=== PATIENT | female | born 1945 | race Caucasian/White ===

== ENCOUNTER 2022-12-31 09:29 | Inpatient (IN) | payer MEDICARE, SELFPAY ==
[2022-12-31] VITALS (13 sets, daily range): BP systolic 105–195; BP diastolic 62–100; PULSE 74–106; RESP 16–24; TEMP 36.4–37.2; O2SAT 60–98; BMI 32.1
--- NOTE | 2022-12-31 09:57 | XRR_ITS ---
PROCEDURE INFORMATION: Exam: XR Chest Exam date and time: 12/31/2022 10:31 AM Age: 77 years old Clinical indication: Shortness of breath; Additional info: Dyspnea/cough TECHNIQUE: Imaging protocol: Radiologic exam of the chest. Views: 1 view. COMPARISON: No relevant prior studies available. FINDINGS: Lungs: Hazy opacity at the peripheral left lower lung zone. No dense consolidation. Right upper lung calcified granulomata. Pleural spaces: No substantial pleural effusion or pneumothorax. Heart/Mediastinum: Unremarkable. No cardiomegaly. Vasculature: Aortic arch atherosclerotic calcification. Bones/joints: Unremarkable. XR/XR chest 1V portable [id number] IMPRESSION: Hazy left lower lung zone opacity may represent atelectasis, scarring, and/or confluence of shadows. Developing pneumonia difficult to entirely exclude.
--- NOTE | 2022-12-31 09:58 | ECG_ITS ---
[facility] Test Date: 2022-12-31 Pat Name: Holly Tapia Department: Room: Gender: Female Mechanical Systems Engineer: : 1945 Requested By: Jake Gale Order Number: [id number] Tarsha MD: Juanito Richardson M.D. Measurements Intervals [place] Rate: 98 P: 79 [place]: 127 QRS: 73 QRSD: 73 T: 77 QT: 313 QTc: 401 Interpretive Statements SINUS RHYTHM WITH OCCASIONAL SUPRAVENTRICULAR PREMATURE COMPLEXES No previous ECG available for comparison Electronically Signed On 12-31-2022 12:21:41 CDT by Juanito Richardson M.D. [id number]
--- NOTE | 2022-12-31 10:05 | ED_ITS ---
HPI - SOB/Dyspnea General: Chief Complaint: Shortness of Breath/Dyspnea Stated Complaint: stroke symptoms Time Seen by Provider: 12/31/22 09:57 Source: patient Mode of arrival: ambulatory Limitations: no limitations History of Present Illness: HPI Narrative: 77-year-old female who states that she has had increasing cough along with some shortness of breath over the last 3 weeks. Patient is here with her granddaughter concerned that she is not taking good care of herself states that she has been weaker than normal has been urinating herself. Patient states that she does not want to be here and only came here because her granddaughter made her. She has no known medical history but states she has not CF primary care doctor. She denies any fevers denies any pain. Associated symptoms: Deny abdominal pain, chest pain, fever(s), nausea or vomiting Review of Systems Const: Reports: malaise; Denies: fever(s), chills, body aches or change in appetite Eyes: Denies: blurry vision or eye discomfort ENMT: Denies: throat pain or dental pain Card: Denies: chest pain Resp: Reports: dyspnea and productive cough GI: Denies: abdominal pain, nausea, vomiting or diarrhea : Denies: dysuria Musc: Denies: neck pain or back pain Skin/Breast: Denies: rash Neuro: Denies: headache(s) COUNT INCLUDES THE [facility] ED PFSH: Medical History (Updated 12/31/22 @ 12:36 by Lita Fink MD) History of diverticulitis 2016 with microperforation Surgical History (Updated 12/31/22 @ 12:34 by Lita Fink MD) History of colonoscopy 11/2015 Physical Exam Const: COMMON NORMALS: patient oriented x3 GENERAL APPEARANCE: in distress and ill appearing HENMT: COMMON NORMALS: normocephalic and atraumatic HEAD & SCALP: normocephalic and atraumatic Eye: COMMON NORMALS: Equal, round and reactive pupils present and EOMs intact bilaterally PUPIL: Yes Equal, round and reactive pupils present Neck/C-Spine: COMMON NORMALS: full ROM and supple Chest: COMMONS NORMALS: normal inspection of the chest and normal palpation of entire chest wall Resp: COMMON NORMALS: No retractions and No use of accessory muscles EFFORT & INSPECTION: Yes tachypneic and Yes respiratory distress Cardio: COMMON NORMALS: regular rhythm and No murmurs present (Cardio) RATE: tachycardic RHYTHM: regular rhythm GI: COMMON NORMALS: Normal to inspection, nondistended, normoactive bowel sounds present, Soft to palpation, non-tender and no masses PALPATION: Yes Soft to palpation Extremity: COMMON NORMALS: normal to inspection and full ROM Neuro: COMMON NORMALS: patient oriented x3, moves all extremities and no focal motor deficits Psych: COMMON NORMALS: mental status grossly normal, Normal thought process present and cooperative THOUGHT PROCESS: Normal thought process present Skin: COMMON NORMALS: no rashes or lesions noted and no wounds GENERAL SKIN EXAM: no rashes or lesions noted Course Vital Signs: Vital signs: Vital Signs Temperature 98.9 F 12/31/22 09:35 Pulse Rate 106 H 12/31/22 09:35 Respiratory Rate 24 H 12/31/22 09:35 Blood Pressure 166/81 12/31/22 11:27 Pulse Oximetry 98 12/31/22 11:27 Oxygen Delivery Me thod Nasal Cannula 12/31/22 11:27 Oxygen Flow Rate 4 12/31/22 11:27 MDM - SOB/Dyspnea Medical Decision Making Patient presents here with cough along with dyspnea she is hypoxic requiring oxygen here did start IV antibiotics patient seen by hospitalist who will admit at this time. Medical Records I reviewed the patient's medical records. Lab Data 12/31/22 10:26 12/31/22 10:26 Labs/Radiology: Radiology Impressions Chest X-Ray 12/31/22 09:57 IMPRESSION: Hazy left lower lung zone opacity may represent atelectasis, scarring, and/or confluence of shadows. Developing pneumonia difficult to entirely exclude. Laboratory Results WBC 7.39 10^3/uL (3.29-11.43) 12/31/22 10: RBC 4.48 10^6/uL (3.85-5.65) 12/31/22 10:26 Hgb 12.60 g/dL (11.27-16.99) 12/31/22 10:26 Hct 41.8 % (36-47) 12/31/22 10: MCV 93.3 fl (85-98) 12/31/22 10: MCH 28.1 pg (27-33) 12/31/22 10: MCHC 30.1 g/dL (30-55) 12/31/22 10: RDW 15.8 % (12.1-15.1) H 12/31/22 10: Plt Count 385 10^3/cmm (157-399) 12/31/22 10: MPV 9.5 fL (7.4-10.4) 12/31/22 10: Neut % (Auto) 85.2 % 12/31/22 10: Lymph % (Auto) 8.0 % 12/31/22 10:26 [place]ie % (Auto) 4.7 % 12/31/22 10:26 Eos % (Auto) 0.0 % 12/31/22 10: Baso % (Auto) 0.5 % 12/31/22 10: Neut # (Auto) 6.29 10^3/uL (1.8-7.7) 12/31/22 10: Lymph # (Auto) 0.6 10^3/uL (0.8-4.8) L 12/31/22 10:26 Davie # (Auto) 0.4 10^3/uL (0.2-0.9) 12/31/22 10:26 Eos # (Auto) 0.0 10^3/uL (0.0-0.8) 12/31/22 10:26 Baso # (Auto) 0.0 10^3/uL (0.0-0.1) 12/31/22 10:26 Nucleated RBC % (auto) 0 % 12/31/22 10: Nucleated RBCs # 0.0 /100WBC 12/31/22 10:26 Specimen Type Arterial 12/31/22 10:15 Sample Site Radial, left 12/31/22 10:15 ABG pH 7.41 (7.35-7.45) 12/31/22 10:15 ABG pCO2 56.7 mmHg (35-45) H 12/31/22 10:15 ABG pO2 76.9 mmHg (80.0-100.0) L 12/31/22 10:15 ABG HCO3 35.5 mmol/L (22-26) H 12/31/22 10:15 ABG O2 Saturation 96.4 12/31/22 10:15 ABG Base Excess 8.9 mmol/L (-2.0-2.0) H 12/31/22 10:15 Boby Test Pos 12/31/22 10:15 A-a O2 Gradient 14.2 mmHg (5-10) H 12/31/22 10:15 Hematocrit 39.2 % (37-47) 12/31/22 10:15 Hgb O2 Saturation 93.7 % (95-100) L 12/31/22 10:15 Carboxyhemoglobin 2.6 %THgb (0.4-20.1) 12/31/22 10:15 Methemoglobin 0.2 % (0.4-1.5) L 12/31/22 10:15 Total Hemoglobin 12.8 g/dL (12-16) 12/31/22 10:15 Sodium 141.0 mmol/L (131-143) 12/31/22 10:15 Potassium 3.9 mmol/L (3.5-5.0) 12/31/22 10:15 Glucose 128.0 mg/dL (70-115) H 12/31/22 10:15 Ionized Calcium 1.1 mmol/L (1.1-1.4) 12/31/22 10:15 O2 Delivery Device Nc 12/31/22 10:15 O2 Liters/Min 4.0 % 12/31/22 10:15 FiO2 36.0 % 12/31/22 10:15 [employer] Member ID Anonymous 12/31/22 10:15 Sodium 134 mmol/L (136-145) L 12/31/22 10:26 Potassium 3.9 mmol/L (3.5-5.1) 12/31/22 10:26 Chloride 94 mmol/L (98-107) L 12/31/22 10:26 Carbon Dioxide 33 mmol/L (22-29) H 12/31/22 10:26 Anion Gap 10.9 (5-19) 12/31/22 10:26 BUN 11 mg/dL (8-23) 12/31/22 10:26 Creatinine 0.8 mg/dL (0.5-0.9) 12/31/22 10:26 GFR Calculation Not Reportable 12/31/22 10:26 Glucose 123 mg/dL (65-115) H 12/31/22 10:26 Calculated Osmolality 279 mOsm/kg (285-295) L 12/31/22 10:26 Calcium 8.2 mg/dL (8.5-10.5) L 12/31/22 10:26 Total Bilirubin 0.6 mg/dL (0.15-1.2) 12/31/22 10:26 AST 39 U/L (0-32) H 12/31/22 10:26 ALT 18 U/L (0-33) 12/31/22 10:26 Alkaline Phosphatase 91 U/L (35-105) 12/31/22 10:26 Troponin T Baseline 56 ng/L (0-10) H 12/31/22 10:26 Troponin T 120 Minute 48.52 ng/L (0-10) H 12/31/22 12:22 Delta Troponin T -7.48 ABS# (0-10) L 12/31/22 12:22 NT-Pro-B Natriuret Pep 3844 pg/mL (0-450) H 12/31/22 10:26 Total Protein 7.4 g/dL (6.6-8.7) 12/31/22 10:26 Albumin 3.1 g/dL (3.5-5.2) L 12/31/22 10:26 Globulin 4.3 g/dL (1.3-4.6) 12/31/22 10:26 SARS-CoV-2 Ag (Rapid) Negative (Negative) 12/31/22 10:37 No radiology studies performed this visit EKG Data EKG 1: I personally reviewed and interpreted this EKG as follows: EKG Interpretation Date: 12/31/22 EKG interpretation time: 10: Interpretation: nsr hr [address] or t wave abnormalities qrs 73 qtc 368 Critical Care Time Critical Care Time: Critical Care Time: Yes Total Critical Care Time: 35 Attestation: The high probability of a clinically significant, sudden or life threatening deterioration of the patient's resp system(s) required my full and direct attention, intervention and personal management. The critical care time is as shown. This time is in addition to time spent performing any reported procedures but includes the following: [x] Data and vital sign review and interpretation [x] Patient assessment, examination and intervention [x] Documentation [x] Medication orders and management Discharge Plan Discharge Patient Disposition: Admitted As Inpatient Clinical Impression: Community acquired pneumonia, bilateral, Hypoxemia requiring supplemental oxygen Condition: Stable Prescriptions: No Action Tylenol Ex Str Rapid Release 500 mg Tablet 500 - 1,000 mg PO Q6H PRN (Reason: Pain) Referrals: Chioma Forbes MD [Physician] - Coding Level of Care Code ED Oxygen System Tester for Adrian Ang
--- NOTE | 2022-12-31 10:22 | PC.PHAR ---
pts granddaughter states the pt normally takes care of herself-the pt states she takes no rx medications and only takes tylenol prn-no meds pull up on ext med history
[2022-12-31 10:27] LABS: ABG PCO2 56.7 mmHg (35-45); ABG PH Result 7.41 (7.35-7.45); Alveolar-Arterial Oxygen Gradi 14.2 mmHg (5-10); Arterial Blood Gas Hematocrit 39.2 % (37-47); Base Excess ABG 8.9 mmol/L (-2.0-2.0); Blood Gas Allen Test Pos; Blood Gas Sample Site Radial, left; Blood Gas Sample Type Arterial; Carboxyhemoglobin 2.6 %THgb (0.4-20.1); HCO3 ABG 35.5 mmol/L (22-26); HGB O2 Sat 93.7 % (95-100); Ionized Calcium Level - ABG 1.1 mmol/L (1.1-1.4); Methemoglobin 0.2 % (0.4-1.5); Oxygen Device NC; Oxygen Saturation ABG 96.4; PO2 ABG 76.9 mmHg (80.0-100.0); Potassium Level - ABG 3.9 mmol/L (3.5-5.0); Total Hemoglobin 12.8 g/dL (12-16)
[2022-12-31 10:34] LABS: Basophils % 0.5 %; Hematocrit 41.8 % (36-47); Lymphocytes # 0.6 10^3/uL (0.8-4.8); Mean Corpuscular HGB Conc 30.1 g/dL (30-55); Mean Corpuscular Hemoglobin 28.1 pg (27-33); Mean Corpuscular Volume 93.3 fl (85-98); Mean Platelet Volume 9.5 fL (7.4-10.4); Monocytes # 0.4 10^3/uL (0.2-0.9); Monocytes % 4.7 %; Neutrophils # 6.29 10^3/uL (1.8-7.7); Neutrophils % 85.2 %; Nucleated Red Blood Cells % 0 %; Platelet Count 385 10^3/cmm (157-399); Red Blood Count 4.48 10^6/uL (3.85-5.65); Red Cell Distribution Width 15.8 % (12.1-15.1); White Blood Count 7.39 10^3/uL (3.29-11.43)
--- NOTE | 2022-12-31 10:49 | CT_ITS ---
WS: [id number] CT CHEST ANGIOGRAPHY WITH REFORMATS HISTORY: sob TECHNIQUE: Contiguous axial images are obtained through the chest during arterial injection of intrav enous contrast. Images are reconstructed to evaluate the pulmonary arteries. MIP imaging also reviewe d. All CT scans at [facility] use at least one of these dose optimization techniques: automat ed exposure control; mA and/or kV adjustment per patient size (includes targeted exams where dose is matched to clinical indication); or iterative reconstruction. CONTRAST: Omnipaque 350; 100 mL IV. DLP: 363.02 mGy.cm COMPARISON: None available. Good opacification of the pulmonary artery. No filling defects. Normal sized pulmonary artery. No RIG HT heart strain. Mild atherosclerosis aorta. Atherosclerotic plaque and mild intimal thickening withi n the thoracic aorta. Heart size is normal. No pericardial or pleural effusions. Marked hyperexpansion of the lungs with di ffuse bilateral tree-in-bud airspace disease and mild pulmonary congestion. There are a few scattered granulomata. Motion artifact during the entire exam. Mediastinal and hilar lymphadenopathy. Largest lymph nodes are at the hilum measuring up to 1.6 cm. Suspect these are probably reactive. Moderate increase in thoracic kyphosis with mild curvature and scoliosis. Mild hyperplasia of the adrenal glands. Motion artifact through the upper abdomen. The liver is poorl y visualized. IMPRESSION: 1. No pulmonary embolism. 2. Moderate chronic emphysema. 3. Diffuse tree-in-bud airspace disease. This is usually seen with atypical pneumonia or endobronchia l pneumonia. 4. Mild mediastinal and hilar lymphadenopathy. Probably reactive based upon the pulmonary endobronchi al pneumonia.
[2022-12-31] MEDS: hyDRALAzine 20 mg/mL INJ 1 mL 10 MG IVP (11:00)
[2022-12-31 11:03] LABS: Troponin(5th) Baseline 56 ng/L (0-10)
[2022-12-31 11:10] LABS: Alanine Aminotransferase 18 U/L (0-33); Albumin Level 3.1 g/dL (3.5-5.2); Alkaline Phosphatase 91 U/L (35-105); Anion Gap 10.9 (5-19); Aspartate Amino Transferase 39 U/L (0-32); Blood Urea Nitrogen 11 mg/dL (8-23); Calcium 8.2 mg/dL (8.5-10.5); Carbon Dioxide 33 mmol/L (22-29); Chloride 94 mmol/L (98-107); Globulin 4.3 g/dL (1.3-4.6); Glucose 123 mg/dL (65-115); NT Pro B Type Natriuretic Pept 3844 pg/mL (0-450); Osmolality Calculated 279 mOsm/kg (285-295); Potassium 3.9 mmol/L (3.5-5.1); Sodium 134 mmol/L (136-145); Total Bilirubin 0.6 mg/dL (0.15-1.2); Total Protein 7.4 g/dL (6.6-8.7)
[2022-12-31 11:19] LABS: SARS Covid-2 Antigen Negative (Negative)
[2022-12-31] MEDS: iohexol 350 mg/mL 500 mL Btl (per mL) IV (11:44)
--- NOTE | 2022-12-31 12:06 | ECG_ITS ---
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 Measurements Intervals [place] Rate: 94 P: 84 [place]: 133 QRS: 74 QRSD: 73 T: 74 QT: 332 QTc: 415 Interpretive Statements SINUS RHYTHM Compared to ECG 12/31/2022 10:09:30 No significant changes Electronically Signed On 12-31-2022 12:21:49 CDT by Juanito Richardson M.D. [id number]
[2022-12-31] MEDS: cefTRIAXone 1,000 MG in sodium chloride 0.9% (plus) 50 ML 100 MG IV (12:30)
--- NOTE | 2022-12-31 12:36 | P.HP_ITS ---
Providers/Chief Complaint Admitting Physician: Lita Fink MD Primary Care Provider: Dr Forbes (last seen ~20 years ago) Chief Complaint: shortness of breath History of Present Illness Holly Tapia is a 77 year old female who presented to the emergency room at the urging of her granddaughter. She has had increasing shortness of breath and cough for a couple of weeks. Her great grandson had had a cold. Initially she thought that she had had the same thing but her symptoms progressively worsened. She has had cough intermittently productive of greenish-yellow sputum. At times has paroxysms of coughing that can be quite significant. She has had runny nose, postnasal drainage and mild sore throat. She has had progressively worsening dyspnea on exertion to the point that within the last couple of days she can only take a couple of steps before having to rest. Over the last week or so she has developed some lower extremity edema along with cough incontinence. Both of these are new issues for her. She does not recall having had any fevers but she has not felt well and has had more difficulty attending to her activities of daily living. She has had some dizziness most notable today after attempting to exert. Her legs have also been weaker. Weakness is bilateral and comes on after taking a few steps. She has had itching in her legs as well and has had some sores from scratching. No changes in bowel function. No chest pain or abdominal pain. She herself does not usually seek medical care but at the urging of her granddaughter came into the emergency room for evaluation. On arrival oxygen saturations were documented at 60% on room air. On 4 L of oxygen by nasal cannula saturations were up to 91%. ABG after initiation of oxygen therapy was 7.41/56/76. She has no history of known lung disease. She previously smoked with maybe [id number] history but quit prior to the year 1999. Has never required oxygen before. Denied any pleuritic pain or calf pain. No reports of any hemoptysis. CTA of the chest was done and did not reveal any evidence of pulmonary embolus. It did however show diffuse tree-in-bud airspace disease and mild mediastinal and hilar lymphadenopathy. No evidence of pericardial or pleural effusions though mild pulmonary congestion was noted. Rapid COVID antigen and PCR was negative. She received Rocephin and azithromycin and is being admitted for further evaluation and treatment. Mrs. Tapia son lives with her though has some of his own challenges. She can stay with her granddaughter if needed after discharge though there are about 10 steps she will need to be able to safely navigate. We discussed possibilities at discharge of potentially needing oxygen. While her preference would be to not have to stay in the hospital she understands that she currently needs care. Reviewed that I expect her stay to be 2 to 3 days at at this time depending on clinical onset of treatment. Her goals are to be able to leave the hospital and spend quality time with her great-grandson who is 4 months old. Review of Systems General: Reports: Other (ROS as per HPI or as otherwise noted here) Const: Denies: change in weight ENMT: Reports: other (Bad teeth) Card: Denies: palpitations : Reports: urinary frequency and urinary incontinence; Denies: difficulty voiding or dysuria Musc: Reports: muscle weakness Neuro: Reports: other (No focal weakness reported) Billy/Lymph: Denies: easy bruising or easy bleeding Medications/Allergies Home Medications Medication Instructions Recorded Confirmed Last Taken Type acetaminophen 500 mg tablet 500 - 1,000 mg PO Q6H PRN Pain 12/31/22 12/31/22 Unknown History Allergies Allergy/AdvReac Type Severity Reaction Status Date / Time No Known Allergies Allergy Verified 12/31/22 10:22 PFSH Acute PFSH: Medical History (Updated 12/31/22 @ 16:01 by Lita Fink MD) 4 Para 2 History of diverticulitis 2015 with microperforation Hypertension not chronically on treatment 12/31/22 Surgical History (Updated 12/31/22 @ 12:34 by Lita Fink MD) History of colonoscopy 11/2015 Family History (Updated 12/31/22 @ 14:09 by Lita Fink MD) Father Lung cancer Mother Old age Mother in 2022 at age 95, rarely sought medical care Social History (Updated 12/31/22 @ 14:11 by Ltia Fink MD) Smoking and tobacco status: former smoker Alcohol intake: never Substance/Drug Use: never Household members: other Details: son lives with patient; grand daughter also involved in care Additional social history: Does not seek medical care regularly. Does not want to be in hospital, take pills, or see a doctor unless she has to. Lives in [place]. Vitals/I&O/Wt Last Vital Signs Temp 98.9 F 12/31/22 09:35 Pulse 106 H 12/31/22 09:35 Resp 24 H 12/31/22 09:35 BP 166/81 12/31/22 11:27 Pulse Ox 98 12/31/22 11:27 O2 Del Method Nasal Cannula 12/31/22 11:27 O2 Flow Rate 4 12/31/22 11:27 Weight last 48 hrs Weight 79.832 kg Physical Exam Narrative: Patient is awake and alert, oriented to person, place and situation, able to provide history. Normocephalic. Extraocular movements are intact. Nasopha rynx with clear rhinorrhea. Oropharynx with moist mucous membranes. Mild posterior erythema but no exudates. Poor dentition. Neck is supple. JVD to about 8 cm. Lungs with bilateral crackles throughout, scattered wheeze. Frequent productive sounding cough during evaluation. Regular rhythm, no murmurs noted. 2+ radial pulses. 1+ pedal pulses. Abdomen is soft, slightly rotund. Some excoriation in the labial/intertriginous areas. Clothing is wet. 3+ pitting edema. Scattered sores to both lower extremities in different stages of healing along with some scratches. Loss of hair noted along with significantly hyperkeratotic nails. speech is clear, face symmetric, handgrip is equal, strength equal at both feet, gait not currently assessed. Data 12/31/22 10:26 12/31/22 10:26 Other Labs: Radiology Impressions Chest X-Ray 12/31/22 09:57 IMPRESSION: Hazy left lower lung zone opacity may represent atelectasis, scarring, and/or confluence of shadows. Developing pneumonia difficult to entirely exclude. CTA Chest 12/31/22 IMPRESSION: 1. No pulmonary embolism. 2. Moderate chronic emphysema. 3. Diffuse tree-in-bud airspace disease. This is usually seen with atypical pneumonia or endobronchial pneumonia. 4. Mild mediastinal and hilar lymphadenopathy. Probably reactive based upon the pulmonary endobronchial pneumonia. Laboratory Results WBC 7.39 10^3/uL (3.29-11.43) 12/31/22 10:26 RBC 4.48 10^6/uL (3.85-5.65) 12/31/22 10:26 Hgb 12.60 g/dL (11.27-16.99) 12/31/22 10: Hct 41.8 % (36-47) 12/31/22 10: MCV 93.3 fl (85-98) 12/31/22 10: MCH 28.1 pg (27-33) 12/31/22 10: MCHC 30.1 g/dL (30-55) 12/31/22 10: RDW 15.8 % (12.1-15.1) H 12/31/22 10:26 Plt Count 385 10^3/cmm (157-399) 12/31/22 10: MPV 9.5 fL (7.4-10.4) 12/31/22 10: Neut % (Auto) 85.2 % 12/31/22 10:26 Lymph % (Auto) 8.0 % 12/31/22 10:26 Hemphill % (Auto) 4.7 % 12/31/22 10:26 Eos % (Auto) 0.0 % 12/31/22 10:26 Baso % (Auto) 0.5 % 12/31/22 10: Neut # (Auto) 6.29 10^3/uL (1.8-7.7) 12/31/22 10:26 Lymph # (Auto) 0.6 10^3/uL (0.8-4.8) L 12/31/22 10:26 Hemphill # (Auto) 0.4 10^3/uL (0.2-0.9) 12/31/22 10:26 Eos # (Auto) 0.0 10^3/uL (0.0-0.8) 12/31/22 10:26 Baso # (Auto) 0.0 10^3/uL (0.0-0.1) 12/31/22 10: Nucleated RBC % (auto) 0 % 12/31/22 10: Nucleated RBCs # 0.0 /100WBC 12/31/22 10:26 Specimen Type Arterial 12/31/22 10:15 Sample Site Radial, left 12/31/22 10:15 ABG pH 7.41 (7.35-7.45) 12/31/22 10:15 ABG pCO2 56.7 mmHg (35-45) H 12/31/22 10:15 ABG pO2 76.9 mmHg (80.0-100.0) L 12/31/22 10:15 ABG HCO3 35.5 mmol/L (22-26) H 12/31/22 10:15 ABG O2 Saturation 96.4 12/31/22 10:15 ABG Base Excess 8.9 mmol/L (-2.0-2.0) H 12/31/22 10:15 Boby Test Pos 12/31/22 10:15 A-a O2 Gradient 14.2 mmHg (5-10) H 12/31/22 10:15 Hematocrit 39.2 % (37-47) 12/31/22 10:15 Hgb O2 Saturation 93.7 % (95-100) L 12/31/22 10:15 Carboxyhemoglobin 2.6 %THgb (0.4-20.1) 12/31/22 10:15 Methemoglobin 0.2 % (0.4-1.5) L 12/31/22 10:15 Total Hemoglobin 12.8 g/dL (12-16) 12/31/22 10:15 Sodium 141.0 mmol/L (131-143) 12/31/22 10:15 Potassium 3.9 mmol/L (3.5-5.0) 12/31/22 10:15 Glucose 128.0 mg/dL (70-115) H 12/31/22 10:15 Ionized Calcium 1.1 mmol/L (1.1-1.4) 12/31/22 10:15 O2 Delivery Device Nc 12/31/22 10:15 O2 Liters/Min 4.0 % 12/31/22 10:15 FiO2 36.0 % 12/31/22 10:15 Principal Java Developer ID Anonymous 12/31/22 10:15 Sodium 134 mmol/L (136-145) L 12/31/22 10:26 Potassium 3.9 mmol/L (3.5-5.1) 12/31/22 10:26 Chloride 94 mmol/L (98-107) L 12/31/22 10:26 Carbon Dioxide 33 mmol/L (22-29) H 12/31/22 10:26 Anion Gap 10.9 (5-19) 12/31/22 10:26 BUN 11 mg/dL (8-23) 12/31/22 10:26 Creatinine 0.8 mg/dL (0.5-0.9) 12/31/22 10:26 GFR Calculation Not Reportable 12/31/22 10:26 Glucose 123 mg/dL (65-115) H 12/31/22 10:26 Calculated Osmolality 279 mOsm/kg (285-295) L 12/31/22 10:26 Calcium 8.2 mg/dL (8.5-10.5) L 12/31/22 10:26 Total Bilirubin 0.6 mg/dL (0.15-1.2) 12/31/22 10:26 AST 39 U/L (0-32) H 12/31/22 10:26 ALT 18 U/L (0-33) 12/31/22 10:26 Alkaline Phosphatase 91 U/L (35-105) 12/31/22 10:26 Troponin T Baseline 56 ng/L (0-10) H 12/31/22 10:26 NT-Pro-B Natriuret Pep 3844 pg/mL (0-450) H 12/31/22 10:26 Total Protein 7.4 g/dL (6.6-8.7) 12/31/22 10: Albumin 3.1 g/dL (3.5-5.2) L 12/31/22 10:26 Globulin 4.3 g/dL (1.3-4.6) 12/31/22 10:26 SARS-CoV-2 Ag (Rapid) Negative (Negative) 12/31/22 10:37 Micro: Microbiology 12/31/22 12:22 Blood Culture - Preliminary Blood SPECIMEN COLLECTED 12/31/22 10:26 Blood Culture - Preliminary Blood SPECIMEN COLLECTED A&P Assessment and plan (1) Hypoxemia requiring supplemental oxygen: In a patient without a history of known chronic lung disease or previous oxygen requirement. No evidence of PE on CTA imaging performed in the emergency room. COVID-negative. Pneumonia - viral, bacterial, atypical - and CHF are highest in differential based on current physical exam and other findings. Cardiac ischemia also within the differential though denies any episodes of chest pain and EKG without acute changes. Given prior history of tobacco use and episodes of bronchitis, a component of COPD likely contributing. (2) Community acquired pneumonia, bilateral: Present on admission, organism unknown; bacterial, viral etiology within the differential as is atypical infection. Not currently showing signs of sepsis. (3) Edema: Bilateral lower extremity edema and mild pulmonary congestion, no known history of CHF but has what sounds like longstanding untreated hypertension along with history of former tobacco use and prior episodes of bronchitis increasing possibility of diastolic dysfunction. Has an elevated BNP at baseline but no priors for comparison. Could be an effect of acute illness with decreased activity in the setting of mild hypoalbuminemia. (4) Hypertension: Sounds like has a longstanding history of primary hypertension. Has previously been prescribed antihypertensives which she did not tolerate (specific medication unknown). Not currently prescribed any antihypertensive agents chronically though has not sought medical care for probably 20 years by history. (5) Former tobacco use: Approximately [id number] smoking history, quit prior to 1999. Has had previous episodes of bronchitis but never required oxygen or chronic therapy Plan Elevated baseline troponin Mild hypoalbuminemia Slightly elevated AST Slightly elevated glucose in a patient without a known history of diabetes Labial and intertriginous excoriation General weakness Inpatient admission Maintain oxygen saturations greater than or equal to 92%, currently requiring 4 L by nasal cannula Blood cultures have been collected Continue Rocephin and azithromycin Breathing treatments Systemic steroids Flutter device Check procalcitonin Serial cardiac enzymes and ekgs Echocardiogram IV Lasix, monitoring urine output and renal function as well as blood pressures Oral potassium with Lasix De Leon catheter for both close monitoring of urine output and to allow healing of perineal and labial areas Check urinalysis Diflucan x one dose oral Nystatin cream as needed Montior blood pressures for need to add defined antihypertensive treatment beyond diuretic Check TSH PT eval and treat VTE prophylaxis: Lovenox GI Prophylaxis: PPI Telemetry: not currently indicated De Leon: ordered secondary to excoriation from incontinence and planned diuresis Line(s): peripheral IVs Disposition plan: Home with outpatient follow up possible with home oxygen. Would also benefit from referral to podiatry for nail care. Her goal is to get home so she can have quality time with her great grand son; she understands that care being provided and recommended is to help her reach this goal. Code Status: Allow Natural as per Mrs. Tapia clearly stated wishes should her heart stop beating or if she were to quit breathing. She wants no CPR, intubation. She said Let me go and told her granddaughter this was her wish as well. Supportive care otherwise Findings, concerns and plans as described were discussed with patient and her granddaughter and both were given an opportunity to ask questions Attestations Medical Necessity Statement*: Anticipated stay greater than two midnights in this 77-year-old who is currently requiring 4 L of oxygen by nasal cannula. No prior history of oxygen need nor chronic lung disease though has risk factors for both cardiac and pulmonary causes as described above. Currently on IV diuresis with De Leon catheter, IV antibiotics and other care as noted. At high risk of further clinical decline up to and including possibly without intervention in inpatient setting. She has no clearly described chronic medical conditions and has not sought medical care for ~ 20 years greatly limiting options beyond acute care. and High Time for a total of 75 minutes, includes reviewing past or interval history, examining/interviewing patient, placing orders, counseling patient/family/other support, discussing plan of care with staff and documenting encounter Diagnoses Hypoxemia requiring supplemental oxygen R09.02; Z99.81 Community acquired pneumonia, bilateral J18.9 Edema R60.9 Hypertension I10 Former tobacco use Z87.891
[2022-12-31 12:52] LABS: Troponin 5 2HR 48.52 ng/L (0-10)
[2022-12-31 12:54] LABS: Troponin 5 2HR Delta -7.48 ABS# (0-10)
[2022-12-31] MEDS: azithromycin 500 MG in sodium chloride 0.9% 250 ML 250 MG IV (13:57)
--- NOTE | 2022-12-31 14:30 | USCV_ITS ---
Holly Tapia Age: 77 Gender: F : 1945 Exam Date: 12/31/2022 18:20 Ordering Phys: Lita Fink MD Technologist: ROSHAN Exam Location: [facility] [place] Indication: cough, SOB, pulmonary edema, No hx cardiac intervention per patient. BP: 134 / 75 HR: 88 Rhythm: Sinus Technical Quality: Fair MEASUREMENTS (Male / Female) Normal Values 2D ECHO LV Diastolic Diameter PLAX 3.8 cm 4.2 - 5.9 / 3.9 - 5.3 cm LV Systolic Diameter PLAX 2.8 cm IVS Diastolic Thickness 1.4 cm 0.6 - 1.0 / 0.6 - 0.9 cm IVS Systolic Thickness 1.5 cm LVPW Diastolic Thickness 1.1 cm 0.6 - 1.0 / 0.6 - 0.9 cm LVPW Systolic Thickness 1.4 cm LVOT Diameter 1.9 cm LV Ejection Fraction 2D Teich 52.8 % LV Ejection Fraction MOD 2C 73.7 % LV Ejection Fraction 2C AL 73.3 % LA Diameter 3.2 cm LA Width 3.0 cm LA Height 3.8 cm RA Width 3.6 cm RA Height 3.3 cm Aorta at Sinotubular Diameter 2.5 cm IVC Diameter 1.9 cm M-MODE Aortic Annulus Diameter 2.9 cm LA Ao Ratio MM 1.2 MV E Point Septal Separation 0.5 cm DOPPLER AV Peak Velocity 116.0 cm/s LVOT Peak Velocity 100.0 cm/s AV Area Cont Eq vti 2.5 cm squared AV Area Cont Eq pk 2.4 cm squared MV Peak Velocity 124.0 cm/s MV Area PHT 3.3 cm squared Mitral E to A Ratio 0.9 MV E' Velocity 58.0 cm/s Mitral E to MV E' Ratio 10.4 Mitral E to LV E' Lateral Ratio 9.8 Mitral E to LV E' Septal Ratio 11.2 TR Peak Velocity 259.0 cm/s TR Peak Gradient 26.8 mmHg TV Peak E Velocity 50.0 cm/s Right Atrial Pressure 5.0 mmHg Pulmonary Artery Systolic Pressu 31.8 mmHg FINDINGS Left Ventricle Left ventricle is normal in size. LV systolic function is normal with EF of 60 to 65%. No regional wall motion abnormalities are seen. Grade 1 diastolic dysfunction Right Ventricle Normal in size and function Right Atrium Normal in size Left Atrium Normal in size Mitral Valve Moderate mitral annular calcification is seen. Mild mitral regurgitation Aortic Valve Aortic valve is thickened and calcified. No significant stenosis or regurgitation Tricuspid Valve Trace tricuspid regurgitation. Insufficient TR jet to calculate RVSP Pulmonic Valve Not well visualized Pericardium Normal Aorta Normal in size IVC Appears to be normal CONCLUSIONS LV systolic function is normal with EF of 60 to 65%. Grade 1 diastolic dysfunction. Mild mitral regurgitation. Trace tricuspid regurgitation No comparison studies are available. Juanito Richardson MD (Electronically Signed) Final Date: 31 December 2022 19:48 S
[2022-12-31 15:05] LABS: Add Urine Microscopic? NO; Charge for UA Resulting for Rev
[2022-12-31] MEDS: ipratropium-albuterol 3 mL Neb INHALATION ×2 (15:14→19:35)
[2022-12-31 15:30] LABS: Adenovirus Not Detected (NOT DETECT); Chlamydia Pneumoniae Not Detected (NOT DETECT); Coronavirus 229E,HKU1,NL63,OC4 Not Detected (NOT DETECT); Human Metapneumovirus Not Detected (NOT DETECT); Human Rhinovirus/Enterovirus Not Detected (NOT DETECT); Influenza A Not Detected (NOT DETECT); Influenza A H1 Not Detected (NOT DETECT); Influenza A H1-2009 Not Detected (NOT DETECT); Influenza A H3 Not Detected (NOT DETECT); Influenza B Not Detected (NOT DETECT); Mycoplasma Pneumoniae Not Detected (NOT DETECT); Parainfluenza Virus Type 1 Not Detected (NOT DETECT); Parainfluenza Virus Type 2 Not Detected (NOT DETECT); Parainfluenza Virus Type 3 Not Detected (NOT DETECT); Parainfluenza Virus Type 4 Not Detected (NOT DETECT); Respiratory Syncytial Virus A Not Detected (NOT DETECT); Respiratory Syncytial Virus B Not Detected (NOT DETECT); SARS-COV-2 Not Detected (NOT DETECT)
[2022-12-31 15:43] LABS: Bilirubin Urine 1+ (Negative); Blood Urine Neg (Negative); Glucose Urine UA Norm (Normal); Ketones Urine Negative (Negative); Leukocyte Esterase Urine Negative (Negative); Nitrate Urine Negative (Negative); Protein Urine Neg (Negative); Specific Gravity, Urine 1.025 (1.005-1.030); Urine Appearance Clear (CLEAR); Urine Color Yellow (Yellow); Urobilinogen Urine 4 mg/dL (Negative); pH Urine 5 (5-7)
[2022-12-31 16:26] LABS: Procalcitonin 0.09 ng/mL (0-0.5)
[2022-12-31] MEDS: nystatin cream 30 gm 1 APPLIC TOPICAL (17:13)
[2022-12-31] MEDS: FUROsemide 10 mg/mL SDV 2mL 20 MG IVP (17:13)
[2022-12-31] MEDS: neomycin-poly-bacitracin oint 28 gm 1 APPLIC TOPICAL (17:15)
[2022-12-31] MEDS: fluconazole 100 mg Tablet 150 MG PO (17:15)
[2022-12-31] MEDS: enoxaparin 40 mg/0.4 mL Syringe SUBCUT (17:22)
[2022-12-31 17:41] LABS: Troponin 5 6HR 35.39 ng/L (0-10)
[2023-01-01] VITALS (10 sets, daily range): BP systolic 123–182; BP diastolic 69–82; PULSE 76–100; RESP 15–20; TEMP 36.2–37; O2SAT 90–94
[2023-01-01 06:05] LABS: Basophils % 0.3 %; Eosinophils # 0.1 10^3/uL (0.0-0.8); Eosinophils % 1.4 %; Hematocrit 41.5 % (36-47); Mean Corpuscular HGB Conc 29.6 g/dL (30-55); Mean Corpuscular Volume 94.3 fl (85-98); Mean Platelet Volume 9.5 fL (7.4-10.4); Monocytes # 0.5 10^3/uL (0.2-0.9); Monocytes % 7.4 %; Neutrophils # 5.26 10^3/uL (1.8-7.7); Neutrophils % 75.3 %; Nucleated Red Blood Cells % 0 %; Platelet Count 342 10^3/cmm (157-399); Red Cell Distribution Width 15.9 % (12.1-15.1); White Blood Count 6.99 10^3/uL (3.29-11.43)
[2023-01-01 06:42] LABS: Blood Urea Nitrogen 10 mg/dL (8-23); Calcium 7.8 mg/dL (8.5-10.5); Carbon Dioxide 31 mmol/L (22-29); Chloride 99 mmol/L (98-107); Glucose 96 mg/dL (65-115); Magnesium 2.2 mg/dL (1.7-2.3); Osmolality Calculated 287 mOsm/kg (285-295); Phosphorus 4.1 mg/dL (2.5-4.5); Sodium 139 mmol/L (136-145); Thyroid Stimulating Hormone 0.92 uIU/mL (0.27-4.20)
[2023-01-01] MEDS: predniSONE 20 mg Tablet 40 MG PO (08:21)
[2023-01-01] MEDS: pantoprazole DR 40 mg Tablet PO (08:22)
[2023-01-01] MEDS: potassium chloride ER 20 mEq Tablet PO (08:22)
[2023-01-01] MEDS: neomycin-poly-bacitracin oint 28 gm 1 APPLIC TOPICAL ×2 (08:27→18:29)
[2023-01-01] MEDS: nystatin cream 30 gm 1 APPLIC TOPICAL (08:30)
[2023-01-01] MEDS: ipratropium-albuterol 3 mL Neb INHALATION ×3 (09:22→19:41)
--- NOTE | 2023-01-01 09:24 | PC.CHAP ---
Pastoral Care Encounter/Spiritual Assessment Type of Contact [] Declined smelter charger visit [] Patient/Family/Request visit [] Outpatient visit [] Follow-up visit [] Physician referral [] Code/Alert [x] Routine visit [] Staff referral [] Actively dying [] Patient sleeping [x] Family support [] [] Out of room [] Palliative care [] [] Receiving care in room [] Pre-surgical visit [] Trauma [] Long length of stay [] ICU visit [] Other: Relational/Emotional Strength [x] Patient feels connected with others/family/visitors/staff [] Distress [] Loneliness/isolation [] Abandonment Spirituality of Patient [x] Person of Che [] Attends Confucianism of their Che [x] Believes in Prayer [] Reads Bible or Sikhism materials [] There are Spiritual issues to be addressed Cost Consultant Interventions [x] Prayer [x] Active listening [] Non-anxious presence [x] Spiritual/emotional support [] Crisis/trauma care [] Spiritual counseling [] Bereavement support [] Provided bereavement packet [] Provided Bible/devotional materials [] Provided toy/stuffed animal, coloring book to patient or family member [] Provided Communion [] Anointing/[place] [] Salvation [x] Completed spiritual assessment [] Other: Impact on Illness or Injury [] Angry [] Fearful [] Anxious [] Often cries [] Exhaustion [] Unable to work [] Unable to attend temple [] Unable to walk/stand [] Unable to read [] Unable to drive [] Unable to eat/drink [] Unable to sleep [] Unable to be with family [] Patient intubated [] Other: Summary Time spent with patient 5 min
[2023-01-01] MEDS: azithromycin 500 MG in sodium chloride 0.9% 250 ML 250 MG IV (11:51)
[2023-01-01] MEDS: cefTRIAXone 1,000 MG in sodium chloride 0.9% (plus) 50 ML 100 MG IV (12:59)
[2023-01-01] MEDS: FUROsemide 10 mg/mL SDV 2mL 20 MG IVP (14:10)
[2023-01-01] MEDS: enoxaparin 40 mg/0.4 mL Syringe SUBCUT (14:10)
--- NOTE | 2023-01-01 16:24 | P.PN_ITS ---
Subjective Subjective: She is quite bothered by cough. Having some chest congestion, not bringing up much phlegm. Discussed with her antitussive. Decongestant. Discussed flutter valve. No nausea vomiting or diarrhea. She is still having some lower extremity swelling. Vitals/I&O/Wt Last Vital Signs Temp 97.5 F L 01/01/23 16:00 Pulse 82 01/01/23 16:00 Resp 19 H 01/01/23 16:00 BP 145/76 01/01/23 16:00 Pulse Ox 91 01/01/23 16:00 O2 Del Method Room Air 01/01/23 16:00 O2 Flow Rate 3 01/01/23 15:33 01/01/23 01/01/23 01/01/23 06:59 14:59 22:59 Intake Total 900 / 900 Output Total 100 / 1600 Balance -100 / -1060 900 / 900 Weight last 48 hrs Weight 82.645 kg Weight 79.832 kg Physical Exam Narrative: Accompanied by a gentleman visitor at bedside. Const: COMMON NORMALS: patient oriented x3 and alert GENERAL APPEARANCE: cooperative ORIENTATION/CONSCIOUSNESS: Yes awake HENMT: COMMON NORMALS: oropharynx normal Neck/C-Spine: COMMON NORMALS: no JVD Resp: COMMON NORMALS: normal respiratory effort OTHER: Coarse breath sounds. Mildly diminished. Cardio: COMMON NORMALS: no JVD, regular rhythm, S1 normal heart sound present, S2 normal heart sound present and No murmurs present (Cardio) RHYTHM: regular rhythm HEART SOUNDS: S1 normal heart sound present and S2 normal heart sound present GI: COMMON NORMALS: Normal to inspection, nondistended, normoactive bowel sounds present, Soft to palpation and non-tender PALPATION: Yes Soft to palpation Extremity: COMMON NORMALS: no joint enlargement GENERAL: Yes edema (2+ BL LE) Neuro: COMMON NORMALS: patient oriented x3 and moves all extremities SENSORIUM/ORIENTATION: Yes alert Skin: OTHER: Small maculopapular lesions scattered on LE Urinary Catheter Management: De Leon: Cath Placed During This Visit: yes Reason for Continuing Indwelling Catheter: Accurate Measurement of Urinary Output in Critically Ill Patients Urinary Catheter Date of Insertion: 12/31/22 Urinary Catheter Time of Insertion: 14:57 Data 01/01/23 05:54 01/01/23 05:54 Micro: Microbiology 12/31/22 12:22 Blood Culture - Preliminary Blood NEGATIVE TO DATE 12/31/22 10:26 Blood Culture - Preliminary Blood NEGATIVE TO DATE A&P Assessment and plan (1) Hypoxemia requiring supplemental oxygen: Gradually improving, weaning down on oxygen support. She is still bothered by significant cough. Continue treatment of community-acquired pneumonia, suspected component of COPD with noted emphysema, tach, diminished air entry. Continue prednisone 20 mg daily. Add expectorant, antitussive. Continue breathing treatments. Oxygen support as needed. Will benefit from home O2 evaluation prior to discharge. Discussed with case management. Additional component of fluid overload, diastolic congestive heart failure, revi ewed echocardiogram results, noted EF within normal range, grade 1 diastolic dysfunction. Mild MVR. Trace TVR. From long-term optimization of hypertension control to prevent progressive cardiac dysfunction. Repeat IV Lasix. Change diet to cardiac. Reviewed CBC, reviewed electrolytes, renal function. Magnesium. TSH. At risk of electrolyte imbalance, repeat chemistry. (2) Community acquired pneumonia, bilateral: Continue ceftriaxone, azithromycin. Treat component of COPD exacerbation. Diastolic CHF exacerbation. (3) Edema: As above. (4) Hypertension: Repeat Lasix. Monitor blood pressures. Change diet to cardiac. Sounds like has a longstanding history of primary hypertension. Has previously been prescribed antihypertensives which she did not tolerate (specific medication unknown). Not currently prescribed any antihypertensive agents chronically though has not sought medical care for probably 20 years by history. (5) Former tobacco use: Approximately [id number] smoking history, quit prior to 1999. Has had previous episodes of bronchitis but never required oxygen or chronic therapy Plan LE: Maculopapular rash. Appears like possibly insect bites. Monitor. De Leon: secondary to excoriation from incontinence and planned diuresis Disposition plan: Home with outpatient follow up possibly with home oxygen. Her goal is to get home so she can have quality time with her great grand son Would also benefit from referral to podiatry for nail care. Code Status: Allow Natural as per Mrs. Tapia clearly stated wishes should her heart stop beating or if she were to quit breathing. She wants no CPR, intubation. Attestations Medical Necessity Statement*: Admission for assessment of remainder of community-acquired pneumonia, COPD exacerbation, CHF exacerbation. Diagnoses Hypoxemia requiring supplemental oxygen R09.02; Z99.81 Community acquired pneumonia, bilateral J18.9 Edema R60.9 Hypertension I10 Former tobacco use Z87.891
[2023-01-02] VITALS (11 sets, daily range): BP systolic 134–165; BP diastolic 75–83; PULSE 72–95; RESP 16–22; TEMP 36.4–37.2; O2SAT 86–98
[2023-01-02 06:11] LABS: Basophils % 0.3 %; Eosinophils % 0.3 %; Hematocrit 40.3 % (36-47); Lymphocytes # 0.9 10^3/uL (0.8-4.8); Lymphocytes % 12.5 %; Mean Corpuscular HGB Conc 29.3 g/dL (30-55); Mean Corpuscular Hemoglobin 27.8 pg (27-33); Mean Platelet Volume 9.6 fL (7.4-10.4); Monocytes # 0.5 10^3/uL (0.2-0.9); Monocytes % 7.5 %; Neutrophils # 5.41 10^3/uL (1.8-7.7); Nucleated Red Blood Cells % 0 %; Platelet Count 299 10^3/cmm (157-399); Red Blood Count 4.24 10^6/uL (3.85-5.65); Red Cell Distribution Width 15.7 % (12.1-15.1); White Blood Count 7.11 10^3/uL (3.29-11.43)
[2023-01-02 06:33] LABS: Anion Gap 10.2 (5-19); Blood Urea Nitrogen 14 mg/dL (8-23); Calcium 8.1 mg/dL (8.5-10.5); Carbon Dioxide 36 mmol/L (22-29); Chloride 96 mmol/L (98-107); Glucose 94 mg/dL (65-115); Osmolality Calculated 286 mOsm/kg (285-295); Potassium 4.2 mmol/L (3.5-5.1); Sodium 138 mmol/L (136-145)
[2023-01-02] MEDS: ipratropium-albuterol 3 mL Neb INHALATION ×4 (08:08→20:01)
[2023-01-02] MEDS: pantoprazole DR 40 mg Tablet PO (08:38)
[2023-01-02] MEDS: nystatin cream 30 gm 1 APPLIC TOPICAL ×2 (08:38→17:37)
[2023-01-02] MEDS: potassium chloride ER 20 mEq Tablet PO (08:38)
[2023-01-02] MEDS: predniSONE 20 mg Tablet 40 MG PO (08:38)
[2023-01-02] MEDS: neomycin-poly-bacitracin oint 28 gm 1 APPLIC TOPICAL ×2 (08:39→17:37)
[2023-01-02] MEDS: cefTRIAXone 1,000 MG in sodium chloride 0.9% (plus) 50 ML 100 MG IV (10:42)
[2023-01-02] MEDS: azithromycin 500 MG in sodium chloride 0.9% 250 ML 250 MG IV (14:15)
[2023-01-02] MEDS: enoxaparin 40 mg/0.4 mL Syringe SUBCUT (14:22)
[2023-01-02] MEDS: FUROsemide 10 mg/mL SDV 2mL 20 MG IVP (14:24)
--- NOTE | 2023-01-02 17:05 | PM.PN ---
Subjective Subjective: She feels overall she is improving. She is still needing oxygen, not normally on oxygen. Still having cough, wheezing. Vitals/I&O/Wt Last Vital Signs Temp 98 F 01/02/23 16:33 Pulse 85 01/02/23 16:33 Resp 18 01/02/23 16:33 BP 134/75 01/02/23 16:33 Pulse Ox 94 01/02/23 16:33 O2 Del Method Nasal Cannula 01/02/23 16:33 O2 Flow Rate 3 01/02/23 16:05 01/02/23 01/02/23 01/02/23 06:59 14:59 22:59 Intake Total 410 / 410 250 / 660 Output Total 500 / 1300 700 / 700 Balance -500 / 320 410 / 410 -450 / -40 Weight last 48 hrs Weight 82.554 kg Weight 82.645 kg Physical Exam Narrative: Accompanied by a gentleman visitor at bedside. Const: COMMON NORMALS: patient oriented x3 and alert GENERAL APPEARANCE: cooperative ORIENTATION/CONSCIOUSNESS: Yes awake HENMT: COMMON NORMALS: oropharynx normal Neck/C-Spine: COMMON NORMALS: no JVD Resp: COMMON NORMALS: normal respiratory effort OTHER: Wheezing. Cardio: COMMON NORMALS: no JVD, regular rhythm, S1 normal heart sound present, S2 normal heart sound present and No murmurs present (Cardio) RHYTHM: regular rhythm HEART SOUNDS: S1 normal heart sound present and S2 normal heart sound present GI: COMMON NORMALS: Normal to inspection, nondistended, normoactive bowel sounds present, Soft to palpation and non-tender PALPATION: Yes Soft to palpation Extremity: COMMON NORMALS: no joint enlargement GENERAL: Yes edema (2+ BL LE) Neuro: COMMON NORMALS: patient oriented x3 and moves all extremities SENSORIUM/ORIENTATION: Yes alert Skin: OTHER: Small maculopapular lesions scattered on LE Urinary Catheter Management: De Leon: Cath Placed During This Visit: yes Reason for Continuing Indwelling Catheter: Accurate Measurement of Urinary Output in Critically Ill Patients Urinary Catheter Date of Insertion: 12/31/22 Urinary Catheter Time of Insertion: 14:57 Data 01/02/23 05:52 01/02/23 05:52 Micro: Microbiology 12/31/22 12:22 Blood Culture - Preliminary Blood NEGATIVE TO DATE 12/31/22 10:26 Blood Culture - Preliminary Blood NEGATIVE TO DATE A&P Assessment and plan (1) Hypoxemia requiring supplemental oxygen: She is gradually improving. Still wheezing. Coughing. Still hypoxic, requiring 3 L oxygen, although has been gradually improving. Not normally on oxygen. Encouraged ambulation. We will discontinue De Leon. Continue ceftriaxone, azithromycin, prednisone. Breathing treatments. Expectorants. Antitussive. Discussed with case management if continues to gradually improve, consideration of returning home tomorrow, home oxygen evaluation requested. Additional Lasix today for CHF. Additional component of fluid overload, diastolic congestive heart failure, reviewed echocardiogram results, noted EF within normal range, grade 1 diastolic dysfunction. Mild MVR. Trace TVR. From long-term optimization of hypertension control to prevent progressive cardiac dysfunction. Treat pneumonia, component of COPD exacerbation. Diastolic CHF exacerbation. Reviewed CBC, chemistry. Repeat both. Reassess white count. At risk of electrolyte imbalance. (2) Community acquired pneumonia, bilateral: (3) Edema: As above. (4) Hypertension: BP improved. Repeat Lasix. Monitor blood pressures. Cardiac diet. Sounds like has a longstanding history of primary hypertension. Has previously been prescribed antihypertensives which she did not tolerate (specific medication unknown). Not currently prescribed any antihypertensive agents chronically though has not sought medical care for probably 20 years by history. (5) Former tobacco use: Approximately 75-[id number]-sxuk smoking history, quit prior to 1999. Has had previous episodes of bronchitis but never required oxygen or chronic therapy Plan LE: Maculopapular rash with some shallow ulcerations. No blistering. Reports these are from excoriations from scratching her legs. De Leon: secondary to excoriation from incontinence and planned diuresis Disposition plan: Home with outpatient follow up possibly with home oxygen. Her goal is to get home so she can have quality time with her great grand son Would also benefit from referral to podiatry for nail care. Code Status: Allow Natural as per Mrs. Tapia clearly stated wishes should her heart stop beating or if she were to quit breathing. She wants no CPR, intubation. Attestations Medical Necessity Statement*: Admission for assessment of remainder of community-acquired pneumonia, COPD exacerbation, CHF exacerbation. Diagnoses Hypoxemia requiring supplemental oxygen R09.02; Z99.81 Community acquired pneumonia, bilateral J18.9 Edema R60.9 Hypertension I10 Former tobacco use Z87.891
--- NOTE | 2023-01-02 19:22 | PC.NURSE ---
pt irritable, refused to answer some questions, stated I'm not answering that , or just glares at nurse. able to follow some instruction to allow assessments
[2023-01-03] VITALS (7 sets, daily range): BP systolic 130–184; BP diastolic 60–84; PULSE 82–90; RESP 16–18; TEMP 36.7–37.2; O2SAT 94–97
--- NOTE | 2023-01-03 04:32 | PC.NURSE ---
pt used bathroom and there was not a hat in there to collect it
[2023-01-03 05:15] LABS: Basophils % 0.2 %; Eosinophils % 0.5 %; Hematocrit 38.9 % (36-47); Lymphocytes # 0.9 10^3/uL (0.8-4.8); Lymphocytes % 13.9 %; Mean Corpuscular HGB Conc 29.3 g/dL (30-55); Mean Corpuscular Hemoglobin 27.9 pg (27-33); Mean Corpuscular Volume 95.3 fl (85-98); Monocytes # 0.6 10^3/uL (0.2-0.9); Monocytes % 8.9 %; Neutrophils # 5.04 10^3/uL (1.8-7.7); Nucleated Red Blood Cells % 0 %; Platelet Count 290 10^3/cmm (157-399); Red Blood Count 4.08 10^6/uL (3.85-5.65); Red Cell Distribution Width 15.7 % (12.1-15.1); White Blood Count 6.62 10^3/uL (3.29-11.43)
[2023-01-03 05:37] LABS: Anion Gap 7.3 (5-19); Blood Urea Nitrogen 16 mg/dL (8-23); Calcium 8.3 mg/dL (8.5-10.5); Carbon Dioxide 39 mmol/L (22-29); Chloride 95 mmol/L (98-107); Glucose 88 mg/dL (65-115); Osmolality Calculated 285 mOsm/kg (285-295); Potassium 4.3 mmol/L (3.5-5.1); Sodium 137 mmol/L (136-145)
[2023-01-03] MEDS: ipratropium-albuterol 3 mL Neb INHALATION ×2 (08:31→11:20)
[2023-01-03] MEDS: neomycin-poly-bacitracin oint 28 gm 1 APPLIC TOPICAL (09:55)
[2023-01-03] MEDS: potassium chloride ER 20 mEq Tablet PO (09:56)
[2023-01-03] MEDS: nystatin cream 30 gm 1 APPLIC TOPICAL (09:56)
[2023-01-03] MEDS: pantoprazole DR 40 mg Tablet PO (09:56)
[2023-01-03] MEDS: predniSONE 20 mg Tablet 40 MG PO (09:56)
--- NOTE | 2023-01-03 10:54 | PM.DCS ---
Discharge Providers Date of Admission: 12/31/22 12:27 Date of Discharge: January 03, 2023 Attending Provider at Admission: Lita Fink MD Attending Provider at Discharge: Blake Ahuja Diagnoses at Discharge Discharge Diagnosis (1) Hypoxemia requiring supplemental oxygen: Status: Acute (2) Community acquired pneumonia, bilateral: Status: Acute (3) Edema: Status: Acute (4) Hypertension: Status: Acute Permanent problem details: not chronically on treatment 12/31/22 (5) Former tobacco use: Status: Acute Permanent problem details: quit ~1999 Reason for Visit Reason for Visit: shortness of breath Hospital Course Hospital Course Pleasant 77-year-old lady with history of hypertension, presenting due to increasing shortness of breath, cough, started after great grandson had a cold. Initially with similar symptoms, but symptoms progressed, worsening with productive cough with green-yellow sputum. Bothersome cough. Progressive dyspnea on exertion. In the hospital with wheezing, reduced air entry, new oxygen requirement with need for 4 L of oxygen by nasal cannula, previously not on oxygen. CT angiogram chest without PE, with diffuse tree-in-bud airspace disease and mild mediastinal and hilar lymphadenopathy. COVID-19 PCR panel was negative. She was started on ceftriaxone and azithromycin. Additionally with bronchospastic component with wheezing, did receive prednisone as well. On presentation also with lower extremity edema bilaterally, with possible component of congestive heart failure, was treated with diuretic, echocardiogram obtained with normal ejection fraction, with noted grade 1 diastolic dysfunction. Blood pressures in the hospital with some fluctuation, intermittently rising up to 170s-180s. On the legs also noted with scattered small lesions, shallow ulcerations, x-ray shows, she states from scratching her legs, some with small maculopapular appearance. With treatment her respiratory symptoms have been improving from bacterial pneumonia unlikely superimposed on initially viral pneumonia. Cough still present but with improvement. Blood culture remains negative. Oxygenation improving but still requiring oxygen support. Subjectively she has been improving. She feels ready to return home. Please follow-up for continued improvement. She will complete course of cefdinir and azithromycin, as well as a short course of prednisone at discharge due to bronchospastic component. Albuterol is provided for ambulation as needed. Advised to continue monitoring blood pressure to prevent further progression of diastolic dysfunction, congestive heart failure. Provided with Lasix as needed. Started on low-dose lisinopril for now. Please reassess blood pressure, continue to optimize. Advised to avoid scratching her legs, apply moisturizer as needed. Please follow-up the tiny scattered lesions on her legs. Physical Exam Narrative: She appears comfortable. In good spirits. States she is feeling better. Denies any complaints. Feels ready to return home. Const: COMMON NORMALS: patient oriented x3 and alert GENERAL APPEARANCE: cooperative ORIENTATION/CONSCIOUSNESS: Yes awake HENMT: COMMON NORMALS: oropharynx normal Neck/C-Spine: COMMON NORMALS: no JVD Resp: COMMON NORMALS: normal respiratory effort OTHER: Minimal wheeze left upper lung clear Cardio: COMMON NORMALS: no JVD, regular rhythm, S1 normal heart sound present, S2 normal heart sound present and No murmurs present (Cardio) RHYTHM: regular rhythm HEART SOUNDS: S1 normal heart sound present and S2 normal heart sound present GI: COMMON NORMALS: Normal to inspection, nondistended, normoactive bowel sounds present, Soft to palpation and non-tender PALPATION: Yes Soft to palpation Extremity: COMMON NORMALS: no joint enlargement GENERAL: Yes edema (2+ BL LE) Neuro: COMMON NORMALS: patient oriented x3 and moves all extremities SENSORIUM/ORIENTATION: Yes alert Skin: OTHER: Small maculopapular lesions, tiny shallow ulcerations/excoriations scattered on LE Urinary Catheter Management: De Leon: Cath Placed During This Visit: yes, but has since been removed by the nurse Reason for Continuing Indwelling Catheter: Decision to DC Catheter Urinary Catheter Date of Insertion: 12/31/22 Urinary Catheter Time of Insertion: 14:57 Date Urinary Catheter Removed: 01/02/23 Time Urinary Catheter Discontinued: 17:40 Discharge Data Studies Completed and Pending Completed Studies During Hospitalization Category Date Time Status CTA chest [CT angio chest PE protcl [id number]] Stat Cat Scan 12/31/22 10:49 Completed XR chest 1V portable [id number] Stat Exams 12/31/22 09:57 Completed CV. echo complete* [id number] Routine Ultrasound 12/31/22 14:30 Completed Pending at discharge Category Date Time Status Basic Metabolic Panel AM LABS Lab 01/04/23 04:00 Ordered Blood Culture Stat Lab 12/31/22 12:22 Results Complete Blood Count w/Auto AM LABS Lab 01/04/23 04:00 Ordered Radiology Impressions Chest X-Ray 12/31/22 09:57 IMPRESSION: Hazy left lower lung zone opacity may represent atelectasis, scarring, and/or confluence of shadows. Developing pneumonia difficult to entirely exclude. Laboratory Results WBC 6.62 10^3/uL (3.29-11.43) 01/03/23 04:35 RBC 4.08 10^6/uL (3.85-5.65) 01/03/23 04:35 Hgb 11.40 g/dL (11.27-16.99) 01/03/23 04:35 Hct 38.9 % (36-47) 01/03/23 04:35 MCV 95.3 fl (85-98) 01/03/23 04:35 MCH 27.9 pg (27-33) 01/03/23 04:35 MCHC 29.3 g/dL (30-55) L 01/03/23 04:35 RDW 15.7 % (12.1-15.1) H 01/03/23 04:35 Plt Count 290 10^3/cmm (157-399) 01/03/23 04:35 MPV 10.0 fL (7.4-10.4) 01/03/23 04:35 Neut % (Auto) 76.0 % 01/03/23 04:35 Lymph % (Auto) 13.9 % 01/03/23 04:35 [place] % (Auto) 8.9 % 01/03/23 04:35 Eos % (Auto) 0.5 % 01/03/23 04:35 Baso % (Auto) 0.2 % 01/03/23 04:35 Neut # (Auto) 5.04 10^3/uL (1.8-7.7) 01/03/23 04:35 Lymph # (Auto) 0.9 10^3/uL (0.8-4.8) 01/03/23 04:35 [place] # (Auto) 0.6 10^3/uL (0.2-0.9) 01/03/23 04:35 Eos # (Auto) 0.0 10^3/uL (0.0-0.8) 01/03/23 04:35 Baso # (Auto) 0.0 10^3/uL (0.0-0.1) 01/03/23 04:35 Nucleated RBC % (auto) 0 % 01/03/23 04:35 Nucleated RBCs # 0.0 /100WBC 01/03/23 04:35 Specimen Type Arterial 12/31/22 10:15 Sample Site Radial, left 12/31/22 10:15 ABG pH 7.41 (7.35-7.45) 12/31/22 10:15 ABG pCO2 56.7 mmHg (35-45) H 12/31/22 10:15 ABG pO2 76.9 mmHg (80.0-100.0) L 12/31/22 10:15 ABG HCO3 35.5 mmol/L (22-26) H 12/31/22 10:15 ABG O2 Saturation 96.4 12/31/22 10:15 ABG Base Excess 8.9 mmol/L (-2.0-2.0) H 12/31/22 10:15 Boby Test Pos 12/31/22 10:15 A-a O2 Gradient 14.2 mmHg (5-10) H 12/31/22 10:15 Hematocrit 39.2 % (37-47) 12/31/22 10:15 Hgb O2 Saturation 93.7 % (95-100) L 12/31/22 10:15 Carboxyhemoglobin 2.6 %THgb (0.4-20.1) 12/31/22 10:15 Methemoglobin 0.2 % (0.4-1.5) L 12/31/22 10:15 Total Hemoglobin 12.8 g/dL (12-16) 12/31/22 10:15 Sodium 141.0 mmol/L (131-143) 12/31/22 10:15 Potassium 3.9 mmol/L (3.5-5.0) 12/31/22 10:15 Glucose 128.0 mg/dL (70-115) H 12/31/22 10:15 Ionized Calcium 1.1 mmol/L (1.1-1.4) 12/31/22 10:15 O2 Delivery Device Nc 12/31/22 10:15 O2 Liters/Min 4.0 % 12/31/22 10:15 FiO2 36.0 % 12/31/22 10:15 Scratch Brusher ID kinch 12/31/22 10:15 Sodium 137 mmol/L (136-145) 01/03/23 04:35 Potassium 4.3 mmol/L (3.5-5.1) 01/03/23 04:35 Chloride 95 mmol/L (98-107) L 01/03/23 04:35 Carbon Dioxide 39 mmol/L (22-29) H 01/03/23 04:35 Anion Gap 7.3 (5-19) 01/03/23 04:35 BUN 16 mg/dL (8-23) 01/03/23 04:35 Creatinine 0.7 mg/dL (0.5-0.9) 01/03/23 04:35 GFR Calculation Not Reportable 01/03/23 04:35 Glucose 88 mg/dL (65-115) 01/03/23 04:35 Calculated Osmolality 285 mOsm/kg (285-295) 01/03/23 04:35 Calcium 8.3 mg/dL (8.5-10.5) L 01/03/23 04:35 Phosphorus 4.1 mg/dL (2.5-4.5) 01/01/23 05:54 Magnesium 2.2 mg/dL (1.7-2.3) 01/01/23 05:54 Total Bilirubin 0.6 mg/dL (0.15-1.2) 12/31/22 10:26 AST 39 U/L (0-32) H 12/31/22 10:26 ALT 18 U/L (0-33) 12/31/22 10:26 Alkaline Phosphatase 91 U/L (35-105) 12/31/22 10:26 Troponin T Baseline 56 ng/L (0-10) H 12/31/22 10:26 Troponin T 120 Minute 48.52 ng/L (0-10) H 12/31/22 12:22 Delta Troponin T -7.48 ABS# (0-10) L 12/31/22 12:22 Troponin T Hi Sens 6Hr 35.39 ng/L (0-10) H 12/31/22 17:03 Troponin T Hi Sens 6Hr Delta -20.61 ng/L (0-12) L 12/31/22 17:03 NT-Pro-B Natriuret Pep 3844 pg/mL (0-450) H 12/31/22 10:26 Total Protein 7.4 g/dL (6.6-8.7) 12/31/22 10: Albumin 3.1 g/dL (3.5-5.2) L 12/31/22 10: Globulin 4.3 g/dL (1.3-4.6) 12/31/22 10: Procalcitonin 0.09 ng/mL (0-0.5) 12/31/22 10: TSH 0.92 uIU/mL (0.27-4.20) 01/01/23 05:54 Urine Color Yellow (Yellow) 12/31/22 15:00 Urine Appearance Clear (CLEAR) 12/31/22 15:00 Urine pH 5 (5-7) 12/31/22 15:00 Ur Specific [place] 1.025 (1.005-1.030) 12/31/22 15:00 Urine Protein Neg (Negative) 12/31/22 15:00 Urine Glucose (UA) Norm (Normal) 12/31/22 15:00 Urine Ketones Negative (Negative) 12/31/22 15:00 Urine Blood Neg (Negative) 12/31/22 15:00 Urine Nitrate Negative (Negative) 12/31/22 15:00 Urine Bilirubin 1+ (Negative) H 12/31/22 15:00 Urine Urobilinogen 4 mg/dL (Negative) H 12/31/22 15:00 Ur Leukocyte Esterase Negative (Negative) 12/31/22 15:00 Coronavirus 229E (PCR) Not detected (NOT DETECT) 12/31/22 13:29 SARS-CoV-2 (PCR) Not detected (NOT DETECT) 12/31/22 13:29 SARS-CoV-2 Ag (Rapid) Negative (Negative) 12/31/22 10:37 Vitals Last Vital Signs Temp 98.0 F 01/03/23 07:15 Pulse 83 01/03/23 08:38 Resp 16 01/03/23 08:31 BP 184/84 01/03/23 07:15 Pulse Ox 96 01/03/23 08:31 O2 Del Method Nasal Cannula 01/03/23 08:31 O2 Flow Rate 3 01/03/23 08:31 Discharge Plan Discharge Patient Disposition: Home Condition: Stable Prescriptions: New cefdinir 300 mg capsule 300 mg PO BID 5 Days Qty: 10 0RF azithromycin 250 mg tablet 250 mg PO DAILY 5 Days Qty: 5 0RF dextromethorphan-guaifenesin 10-100 mg/5 mL Syrup 10 ml PO Q4H PRN (Reason: Cough) Qty: 237 0RF nystatin 100,000 unit/gram Cream 1 applic topical BID 14 Days Qty: 30 0RF prednisone 20 mg Tablet 20 mg PO DAILY Qty: 3 0RF benzonatate 100 mg Capsule 100 mg PO TID PRN (Reason: Cough) Qty: 20 1RF Lasix 20 mg tablet 20 mg PO DAILY PRN (Reason: edema) Qty: 30 0RF lisinopril 2.5 mg tablet 2.5 mg PO DAILY Qty: 30 0RF albuterol sulfate 90 mcg/actuation aerosol powdr breath activated 2 inh inhalation Q6H PRN (Reason: shortness of breath or wheezing) Qty: 1 1RF Continued acetaminophen 500 mg Tablet 500 - 1,000 mg PO Q6H PRN (Reason: Pain) Discharge Orders: Discharge Order (Routine); Ordered 01/03/23 Ordered By: Blake Ahuja Other Ambulatory Orders: DME: Oxygen (Order) Location: None Selected Ordered By: Blake Ahuja [place] [facility] [place] Chioma Forbes MD [Physician] - 4-7 days Discharge Diet: Cardiac Discharge Activity: Oxygen as instructed Patient Instructions: Lisinopril (By mouth), Furosemide (By mouth), Albuterol (By breathing), Prednisone (By mouth), Azithromycin (By mouth), Cefdinir (By mouth), Using Oxygen at Home (GEN), Community Acquired Pneumonia (GEN), Pneumonia (GEN), Pneumonia Stoplight Activity Restrictions/Additional Instructions: Complete antibiotic course and short course of prednisone for community-acquired pneumonia. Follow-up with your primary doctor for reassessment of continued improvement. Continue oxygen supplementation at home while recovering. Monitor your oxygen levels, target saturation 92%. Decrease oxygen flow if saturation is higher than that. Increase if it is lower. Seek medical attention in case of worsening or new concerning symptoms including worsening shortness of breath, persistently low oxygen saturation or other concerns. Avoid scratching her legs. Apply moisturizer as needed. Follow-up with your primary doctor to reassess healing of the scratches/ulcers. Use Lasix in case of worsening lower extremity swelling. Reduce sodium intake. Follow-up with your primary provider for reassessment of component of diastolic heart failure. Monitor blood pressures at home 3 times daily, continue to optimize blood pressure control with your primary provider, target blood pressure 120/82 reduce progression of stiffness of your heart muscle and risk of congestive heart failure. Lisinopril is prescribed at low-dose currently to help control blood pressure. Work with your primary doctor with regards to adjustment of medication doses and refills. Discharge Attestations Time Spent in Discharge Care*: greater than 30 min Quality Metrics Clinical Quality Measures [ No reported AMI, CVA or VTE this stay] Coding Level of Care Code 35900 Total time (in minutes) for Discharge: 40 Diagnoses Hypoxemia requiring supplemental oxygen R09.02; Z99.81 Community acquired pneumonia, bilateral J18.9 Edema R60.9 Hypertension I10 Former tobacco use Z87.891
--- NOTE | 2023-01-03 12:02 | PC.SOCIAL ---
Pg 2 IMM Explained to pt Pg 2 IMM. No questions voiced. Provided pt a copy. Initialed, dated, & timed a copy & placed in chart.
== END 2023-01-03 12:42 | disposition home or self-care (01) | DRG 193 ==
LOC: ER 13:17 → MEDSURG 13:21
PROVIDERS: Family Medicine; Admitting Provider Hospitalist; Emergency Provider Emergency Medicine; Visit Provider Internal Medicine
DX: J18.9 Pneumonia, unspecified organism (principal); I50.31 Acute diastolic (congestive) heart failure; J44.1 Chronic obstructive pulmonary disease with (acute) exacerbation; J44.0 Chronic obstructive pulmonary disease with (acute) lower respiratory infection; I11.0 Hypertensive heart disease with heart failure; Z87.891 Personal history of nicotine dependence; Z20.822 Contact with and (suspected) exposure to COVID-19; R21 Rash and other nonspecific skin eruption
CPT/HCPCS: 36415; 36600; 51702; 71045; 71275; 80048; 80051; 80053; 81003; 82330; 82805; 83735; 83880; 84100; 84145; 84443; 84484; 85025; 87040; 87426; 87635; 93005; 93306; 94640; 94760; 96365; 96367; 96372; 96375; 97116; 97161; 97530; 99285; J0360; J0456; J0696; J1650; J1940; J7050; J7512; Q9967

== ENCOUNTER 2023-01-21 15:56 | Outpatient (CLI) | payer MEDICARE, SELFPAY ==
--- NOTE | 2023-01-21 16:02 | XRR_ITS ---
PROCEDURE INFORMATION: Exam: XR Chest Exam date and time: 01/21/2023 4:04 PM Age: 77 years old Clinical indication: Injury or trauma; Blunt trauma (contusions or hematomas); Injury details: --rt. Chest wall trauma, ; additional info: Continued dyspnea/right chest wall trauma TECHNIQUE: Imaging protocol: Radiologic exam of the chest. Views: 2 views. COMPARISON: CR XR chest 1V portable [id number] 12/31/2022 10:31 AM FINDINGS: Lungs: Emphysema. Calcified granulomas in the right lung. No consolidation. Pleural spaces: Unremarkable. No pleural effusion. No pneumothorax. Heart/Mediastinum: Unremarkable. No cardiomegaly. Bones/joints: Kyphosis and degenerative changes of the spine. Old rib fractures. No acute fracture. XR/XR chest 2V* [id number] IMPRESSION: No acute findings.
== END 2023-01-21 15:57 | disposition home or self-care (01) ==
LOC: RAD 15:58
PROVIDERS: PCP Family Medicine; Visit Provider Family Medicine
DX: S20.211A Contusion of right front wall of thorax, initial encounter (principal); X58.XXXA Exposure to other specified factors, initial encounter; R06.00 Dyspnea, unspecified; J18.9 Pneumonia, unspecified organism
CPT/HCPCS: 71046

== ENCOUNTER → 2023-03-08 18:24 | Outpatient (BNVA) | payer MEDICARE, SELFPAY | PROVIDERS: PCP Family Medicine; Visit Provider Nurse Practitioner | DX: R05.9 Cough, unspecified (principal) | CPT/HCPCS: 71046 ==

== ENCOUNTER 2023-03-08 19:14 | Inpatient (IN) | payer MEDICARE, SELFPAY ==
[2023-03-08] VITALS (10 sets, daily range): BP systolic 117–179; BP diastolic 53–82; PULSE 99–127; RESP 16–18; TEMP 37.3–37.4; O2SAT 88–99; BMI 27.4; BMI 26.3
[2023-03-08 19:37] LABS: ABG PCO2 43.8 mmHg (35-45); ABG PH Result 7.42 (7.35-7.45); Arterial Blood Gas Hematocrit 37.2 % (37-47); Base Excess ABG 3.4 mmol/L (-2.0-2.0); Blood Gas Allen Test Pos; Blood Gas Operator Identificat WALCI; Blood Gas Sample Site Radial, right; Blood Gas Sample Type Arterial; Carboxyhemoglobin 1.5 %THgb (0.4-20.1); HCO3 ABG 28.4 mmol/L (22-26); HGB O2 Sat 94.8 % (95-100); Ionized Calcium Level - ABG 1.2 mmol/L (1.1-1.4); Methemoglobin 0.4 % (0.4-1.5); Oxygen Device NC; Oxygen Saturation ABG 96.5; PO2 ABG 73.1 mmHg (80.0-100.0); Total Hemoglobin 12.1 g/dL (12-16)
--- NOTE | 2023-03-08 19:45 | ED_ITS ---
HPI - SOB/Dyspnea 2 General: Chief Complaint: Shortness of Breath/Dyspnea Stated Complaint: Sent By Clinic Possible Phen Time Seen by Provider: 03/08/23 19:25 History of Present Illness: HPI Narrative: Patient presents to the ER from the urgent care stating she is just not feeling good she has had shortness of breath fever cough vomiting. She went to urgent care they did a chest x-ray told her she had a left lower lobe pneumonia and sent her to the ER for further evaluation and treatment. Patient says that she just was treated inpatient about 2 months ago for pneumonia. Patient does wear oxygen at all times at 3 L per nasal cannula. Upon arrival to the ER she was satting 88%. Patient does report being exposed to RSV by her grandson recently. Review of Systems 2 General: Reports: 10 or more systems reviewed and unremarkable except in HPI and below PFSH ED 2 PFSH: Medical History Hypertension not chronically on treatment 12/31/22 4 Para 2 History of diverticulitis 2015 with microperforation Surgical History History of colonoscopy 11/2015 Family History Father Lung cancer Mother Old age Mother in 2022 at age 95, rarely sought medical care Social History Smoking and tobacco/nicotine status: former use of tobacco/nicotine Alcohol intake: never Substance/Drug Use: never Additional social history: Does not seek medical care regularly. Does not want to be in hospital, take pills, or see a doctor unless she has to. Lives in [place]. Household members: other Details: son lives with patient; grand daughter also involved in care Physical Exam 2 Const: COMMON NORMALS: no acute distress, average body habitus, patient oriented x3, no limitations, healthy appearing, alert and well nourished HENMT: COMMON NORMALS: normocephalic, atraumatic, hearing grossly normal bilaterally, external ears normal, Normal external nose present, moist oral mucous membranes and oropharynx normal HEAD & SCALP: normocephalic and atraumatic NOSE: Normal external nose present EXTERNAL EAR: Yes external ears normal Neck/C-Spine: COMMON NORMALS: full ROM, supple, no meningeal signs, no JVD and Thyroid normal THYROID: Thyroid normal Chest: COMMONS NORMALS: normal inspection of the chest and normal palpation of entire chest wall Resp: COMMON NORMALS: normal respiratory effort, No retractions, No use of accessory muscles and clear to auscultation bilaterally AUSCULTATION: clear to auscultation bilaterally Cardio: COMMON NORMALS: no JVD, regular rhythm, S1 normal heart sound present, S2 normal heart sound present, No gallops present (Cardio), No clicks present (Cardio), No murmurs present (Cardio) and No rub (Cardio); negative for regular rate (Mildly tachycardic) RATE: abnormal rate (Mildly tachycardic) RHYTHM: regular rhythm HEART SOUNDS: S1 normal heart sound present and S2 normal heart sound present GI: COMMON NORMALS: Normal to inspection, nondistended, normoactive bowel sounds present, Soft to palpation, non-tender, No hepatosplenomegaly present and no masses PALPATION: Yes Soft to palpation and Yes No hepatosplenomegaly present : COMMON NORMALS: Yes no CVA tenderness BLADDER/KIDNEY EXAM: Yes no CVA tenderness Back/Pelvis: COMMON NORMALS: no CVA tenderness Neuro: COMMON NORMALS: patient oriented x3 SENSORIUM/ORIENTATION: Yes alert MENINGEAL SIGNS: Yes no meningeal signs Course 2 Vital Signs: Vital signs: Vital Signs Temperature 99.2 F 03/08/23 19:18 Pulse Rate 105 H 03/08/23 20:40 Respiratory Rate 17 03/08/23 20:40 Blood Pressure 173/57 03/08/23 20:40 Pulse Oximetry 98 03/08/23 20:40 Oxygen Delivery Me thod Nasal Cannula 03/08/23 20:31 Oxygen Flow Rate 3 03/08/23 20:31 MDM - SOB/Dyspnea Medical Decision Making Patient presents to the ER from urgent care with diagnosis of left lower lobe pneumonia. Patient had lab work done which was essentially unremarkable. Patient's was tachycardic when she came in and hypoxic on 3 L with a rate of 127 and O2 sat of 88%. Patient was given 1 DuoNeb treatment and her oxygen increased to 98% on 3 L and her heart rate came down to about 105 bpm. Patient was given 3.[address] Grey was consulted who agreed to place patient observation for further antibiotic treatment and breathing treatments. Differential Diagnosis Likely community acquired pneumonia; Unlikely acute exacerbation of chronic obstructive airways disease, congestive heart failure, asthma with exacerbation or pulmonary embolism Medical Records I reviewed the patient's medical records. Lab Data I reviewed the patient's lab results. 03/08/23 19:40 03/08/23 19:40 Labs/Radiology: Laboratory Results WBC 10.09 10^3/uL (3.29-11.43) 03/08/23 19:40 RBC 4.20 10^6/uL (3.85-5.65) 03/08/23 19:40 Hgb 11.70 g/dL (11.27-16.99) 03/08/23 19:40 Hct 37.7 % (36-47) 03/08/23 19:40 MCV 89.8 fl (85-98) 03/08/23 19:40 MCH 27.9 pg (27-33) 03/08/23 19:40 MCHC 31.0 g/dL (30-55) 03/08/23 19:40 RDW 15.0 % (12.1-15.1) 03/08/23 19:40 Plt Count 365 10^3/cmm (157-399) 03/08/23 19:40 MPV 10.2 fL (7.4-10.4) 03/08/23 19:40 Neut % (Auto) 73.9 % 03/08/23 19:40 Lymph % (Auto) 16.7 % 03/08/23 19:40 Platte % (Auto) 7.0 % 03/08/23 19:40 Eos % (Auto) 1.8 % 03/08/23 19:40 Baso % (Auto) 0.3 % 03/08/23 19:40 Neut # (Auto) 7.46 10^3/uL (1.8-7.7) 03/08/23 19:40 Lymph # (Auto) 1.7 10^3/uL (0.8-4.8) 03/08/23 19:40 Platte # (Auto) 0.7 10^3/uL (0.2-0.9) 03/08/23 19:40 Eos # (Auto) 0.2 10^3/uL (0.0-0.8) 03/08/23 19:40 Baso # (Auto) 0.0 10^3/uL (0.0-0.1) 03/08/23 19:40 Nucleated RBC % (auto) 0 % 03/08/23 19:40 Nucleated RBCs # 0.0 /100WBC 03/08/23 19:40 Specimen Type Arterial 03/08/23 19:26 Sample Site Radial, right 03/08/23 19:26 ABG pH 7.42 (7.35-7.45) 03/08/23 19:26 ABG pCO2 43.8 mmHg (35-45) 03/08/23 19: ABG pO2 73.1 mmHg (80.0-100.0) L 03/08/23 19: ABG HCO3 28.4 mmol/L (22-26) H 03/08/23 19:26 ABG O2 Saturation 96.5 03/08/23 19:26 ABG Base Excess 3.4 mmol/L (-2.0-2.0) H 03/08/23 19:26 Boby Test Pos 03/08/23 19:26 A-a O2 Gradient 3.0 mmHg (5-10) L 03/08/23 19:26 Hematocrit 37.2 % (37-47) 03/08/23 19:26 Hgb O2 Saturation 94.8 % (95-100) L 03/08/23 19:26 Carboxyhemoglobin 1.5 %THgb (0.4-20.1) 03/08/23 19:26 Methemoglobin 0.4 % (0.4-1.5) 03/08/23 19:26 Total Hemoglobin 12.1 g/dL (12-16) 03/08/23 19:26 Sodium 140.0 mmol/L (131-143) 03/08/23 19:26 Potassium 4.0 mmol/L (3.5-5.0) 03/08/23 19:26 Glucose 130.0 mg/dL (70-115) H 03/08/23 19:26 Ionized Calcium 1.2 mmol/L (1.1-1.4) 03/08/23 19:26 O2 Delivery Device Nc 03/08/23 19:26 O2 Liters/Min 3.0 % 03/08/23 19:26 [employer] Cutter ID Lexii 03/08/23 19:26 Sodium 136 mmol/L (136-145) 03/08/23 19:40 Potassium 4.5 mmol/L (3.5-5.1) 03/08/23 19:40 Chloride 97 mmol/L (98-107) L 03/08/23 19:40 Carbon Dioxide 30 mmol/L (22-29) H 03/08/23 19:40 Anion Gap 13.5 (5-19) 03/08/23 19:40 BUN 16 mg/dL (8-23) 03/08/23 19:40 Creatinine 1.1 mg/dL (0.5-0.9) H 03/08/23 19:40 GFR Calculation Not Reportable 03/08/23 19:40 Glucose 130 mg/dL (65-115) H 03/08/23 19:40 Calculated Osmolality 285 mOsm/kg (285-295) 03/08/23 19:40 Lactic Acid 2.2 mmol/L (0.5-2.2) 03/08/23 19:40 Calcium 9.0 mg/dL (8.5-10.5) 03/08/23 19:40 Magnesium 1.8 mg/dL (1.7-2.3) 03/08/23 19:40 Total Bilirubin 0.4 mg/dL (0.15-1.2) 03/08/23 19:40 AST 11 U/L (0-32) 03/08/23 19:40 ALT 7 U/L (0-33) 03/08/23 19:40 Alkaline Phosphatase 92 U/L (35-105) 03/08/23 19:40 NT-Pro-B Natriuret Pep 194 pg/mL (0-450) 03/08/23 19:40 Total Protein 7.7 g/dL (6.6-8.7) 03/08/23 19:40 Albumin 3.8 g/dL (3.5-5.2) 03/08/23 19:40 Globulin 3.9 g/dL (1.3-4.6) 03/08/23 19:40 Procalcitonin 0.09 ng/mL (0-0.5) 03/08/23 19:40 All radiology interpretation(s) finalized by discharge EKG Data EKG 1: I personally reviewed and interpreted this EKG as follows: EKG Interpretation Date: 03/08/23 EKG interpretation time: 20:06 Prior EKG tracings: not available for review Interpretation: EKG showed ventricular rate 108 bpm, LA interval 127, QRS duration 74, QTc of 351, sinus tachycardia Discharge Plan Discharge Patient Disposition: Placed in Observation Clinical Impression: Pneumonia Qualifiers: Pneumonia type: due to unspecified organism Laterality: left Lung location: l ower lobe of lung Qualified Code(s): J18.9 - Pneumonia, unspecified organism Coding Level of Care Code ED Freelance Copywriter for [facility] aSv
[2023-03-08 19:54] LABS: Basophils % 0.3 %; Eosinophils # 0.2 10^3/uL (0.0-0.8); Eosinophils % 1.8 %; Hematocrit 37.7 % (36-47); Lymphocytes # 1.7 10^3/uL (0.8-4.8); Lymphocytes % 16.7 %; Mean Corpuscular Hemoglobin 27.9 pg (27-33); Mean Corpuscular Volume 89.8 fl (85-98); Mean Platelet Volume 10.2 fL (7.4-10.4); Monocytes # 0.7 10^3/uL (0.2-0.9); Neutrophils # 7.46 10^3/uL (1.8-7.7); Neutrophils % 73.9 %; Nucleated Red Blood Cells % 0 %; Platelet Count 365 10^3/cmm (157-399); White Blood Count 10.09 10^3/uL (3.29-11.43)
--- NOTE | 2023-03-08 20:06 | ECG_ITS ---
[facility] Test Date: 2023-03-08 Pat Name: Holly Tapia Department: Room: Gender: Female Visual Stylist: : 1945 Requested By: Sergio Wheeler Order Number: [id number] Tarsha MD: Sonia Dash M.D. Measurements Intervals Hundred Rate: 108 P: 89 TN: 127 QRS: 84 QRSD: 74 T: 79 QT: 287 QTc: 386 Interpretive Statements SINUS TACHYCARDIA ABNORMAL RHYTHM ECG Compared to ECG 12/31/2022 12:06:14 Sinus rhythm no longer present Electronically Signed On 03-09-2023 18:34:21 TONNAGE COMPILATION CLERK by Sonia Dash M.D. [id number]
[2023-03-08 20:19] LABS: Lactic Sepsis W/Reflex 2.2 mmol/L (0.5-2.2)
[2023-03-08 20:29] LABS: NT Pro B Type Natriuretic Pept 194 pg/mL (0-450); Procalcitonin 0.09 ng/mL (0-0.5)
[2023-03-08] MEDS: ipratropium-albuterol 3 mL Neb INHALATION (20:33)
[2023-03-08] MEDS: piperacillin-tazobactam 3.375 GM in sodium chloride 0.9% (plus) 50 ML IV (20:39)
[2023-03-08 20:40] LABS: Alanine Aminotransferase 7 U/L (0-33); Albumin Level 3.8 g/dL (3.5-5.2); Alkaline Phosphatase 92 U/L (35-105); Anion Gap 13.5 (5-19); Aspartate Amino Transferase 11 U/L (0-32); Blood Urea Nitrogen 16 mg/dL (8-23); Carbon Dioxide 30 mmol/L (22-29); Chloride 97 mmol/L (98-107); Globulin 3.9 g/dL (1.3-4.6); Glucose 130 mg/dL (65-115); Magnesium 1.8 mg/dL (1.7-2.3); Osmolality Calculated 285 mOsm/kg (285-295); Potassium 4.5 mmol/L (3.5-5.1); Sodium 136 mmol/L (136-145); Total Bilirubin 0.4 mg/dL (0.15-1.2); Total Protein 7.7 g/dL (6.6-8.7)
--- NOTE | 2023-03-08 21:02 | P.HP_ITS ---
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 Patient is stating that her grandson has RSV who is 7 months old will start learning [employer], Holly is stating that her symptoms started roughly 3 days ago with nasal congestion and then it converted to cough, she is endorsing subjective fever, her cough is productive she is being applied sputum, she noticed a couple episode of diarrhea today as well because of worsening of weakness lethargy fatigue and shortness of breath she was evaluated the urgent care, she was asked to come to the ER for further evaluation. In the ER she has been diagnosed with sinus tachycardia, community-acquired pneumonia, she has received antibiotics, patient is stating that in case something happens to her, her granddaughter should be notified, she also has a son, she is full code, initially he was stating that she does not want anything done her tube but when I explained her that without chest compressions resuscitation might not be very fruitful then she agreed for full CODE STATUS I have requested D-dimer, soft interpretation of EKG:- sinus tachycardia Review of Systems 2 Const: Reports: fever(s), chills, body aches and change in weight Eyes: Denies: change in vision ENMT: Denies: throat pain Card: Denies: chest pain Resp: Reports: dyspnea and productive cough GI: Denies: abdominal pain : Denies: flank pain Musc: Denies: neck pain Medications/Allergies Home Medications Medication Instructions Recorded Confirmed Last Taken Type acetaminophen 500 mg tablet 500 - 1,000 mg PO Q6H PRN Pain 12/31/22 03/08/23 Unknown History albuterol sulfate 90 mcg/actuation 2 inh inhalation Q6H PRN shortness 01/03/23 03/08/23 Unknown Rx breath activated powder inhaler of breath or wheezing #1 ea benzonatate 100 mg capsule 100 mg PO TID PRN Cough #20 caps 01/03/23 03/08/23 Unknown Rx dextromethorphan-guaifenesin 10 10 ml PO Q4H PRN Cough #237 mL 01/03/23 03/08/23 Unknown Rx mg-100 mg/5 mL oral syrup furosemide 20 mg tablet (Lasix) 20 mg PO DAILY PRN edema #90 tabs 02/11/23 03/08/23 Unknown Rx lisinopril 5 mg tablet 5 mg PO DAILY #90 tabs 02/11/23 03/08/23 Unknown Rx Allergies Allergy/AdvReac Type Severity Reaction Status Date / Time No Known Allergies Allergy Verified 03/08/23 19:23 PFSH Acute 2 PFSH: Medical History Hypertension not chronically on treatment 12/31/22 4 Para 2 History of diverticulitis 2015 with microperforation Surgical History History of colonoscopy 11/2015 Family History Father Lung cancer Mother Old age Mother in 2022 at age 95, rarely sought medical care Social History Smoking and tobacco/nicotine status: former use of tobacco/nicotine Alcohol intake: never Substance/Drug Use: never Additional social history: Does not seek medical care regularly. Does not want to be in hospital, take pills, or see a doctor unless she has to. Lives in [place]. Household members: other Details: son lives with patient; grand daughter also involved in care Vitals/I&O/Wt Last Vital Signs Temp 99.2 F 03/08/23 19:18 Pulse 105 H 03/08/23 20:40 Resp 17 03/08/23 20:40 BP 173/57 03/08/23 20:40 Pulse Ox 98 03/08/23 20:40 O2 Del Method Nasal Cannula 03/08/23 20:31 O2 Flow Rate 3 03/08/23 20:31 Weight last 48 hrs Weight 68.039 kg Physical Exam 2 Narrative: Pleasant cooperative female Elderly female Currently on 2 L Saturating well Sinus tachycardia heart rate 112 Hemodynamically stable GCS 15 No sign of congestive heart failure Abdomen soft Nonfocal neuroexam Bilateral breath sounds with bronchial breath sounds no active wheezing or crackles Data 03/08/23 19:40 03/08/23 19:40 Micro: Microbiology 03/08/23 19:46 Blood Culture - Preliminary Blood SPECIMEN COLLECTED 03/08/23 19:40 Blood Culture - Preliminary Blood SPECIMEN COLLECTED A&P Assessment and plan (1) COPD (chronic obstructive pulmonary disease): (2) Pneumonia: Qualifiers: Laterality: left Lung location: lower lobe of lung Pneumonia type: due to unspecified organism Qualified Code(s): J18.9 - Pneumonia, unspecified organism Plan Acute COPD exacerbation Patient is getting short of breath on minimal exertion Currently her oxygen requirement is at baseline Will request D-dimer She is tachycardic Complaining of nasal congestion, productive cough, her grandson who is 7 months old has RSV Will request respiratory panel I will start her on ceftriaxone and azithromycin Change DuoNeb to Xopenex and ipratropium because of tachycardia She carries history of diastolic CHF however clinically does not look fluid overloaded I will continue her home regimen of Lasix at this point along potassium supplementation Goals of care discussed in detail, she is full code DVT prophylaxis added Cardiac diet Attestations 2 Medical Necessity Statement*: Anticipating discharge within 48 hours Diagnoses COPD (chronic obstructive pulmonary disease) J44.9 Pneumonia J18.9 Laterality: left Lung location: lower lobe of lung Pneumonia type: due to unspecified organism
--- NOTE | 2023-03-08 21:20 | PC.NURSE ---
ATTEMPTED REPORT, NURSE IN PATIENT ROOM
[2023-03-08 21:39] LABS: Reflex Lactate Order REFLEX LACTIC ORDERD
[2023-03-08 21:56] LABS: D Dimer 2.77 ug/mLFEU (0-0.59)
[2023-03-08] MEDS: methylPREDNISolone sod succ 40 mg/mL INJ 30 MG IVP (22:42)
[2023-03-08] MEDS: benzonatate 100 mg Capsule 200 MG PO (22:47)
[2023-03-08 22:49] LABS: Thyroid Stimulating Hormone 0.78 uIU/mL (0.27-4.20)
[2023-03-08 23:22] LABS: Estmated Average Glucose 114; Hemoglobin A1C 5.6 % (4.0-6.0)
--- NOTE | 2023-03-08 23:55 | CTR_ITS ---
PROCEDURE INFORMATION: Exam: CTA Chest With Contrast Exam date and time: 03/09/2023 12:31 AM Age: 77 years old Clinical indication: Abnormal findings; Abnormal diagnostic tests; Elevated d-dimer; Shortness of breath; Patient HX: SOB with hypoxia. Dimer 2.77. TECHNIQUE: Imaging protocol: Computed tomographic angiography of the chest with contrast. Exam focused on the arteries. 3D rendering (Not supervised by radiologist): MIP and/or 3D reconstructed images were created by the technologist. Radiation optimization: All CT scans at this facility use at least one of these dose optimization techniques: automated exposure control; mA and/or kV adjustment per patient size (includes targeted exams where dose is matched to clinical indication); or iterative reconstruction. Contrast material: OMNI 350; Contrast volume: 65 ml; Contrast route: INTRAVENOUS (IV); REPORTING DATA: Count of CT and Cardiac NM exams in prior 12 months: This patient has received [address] and 0 known cardiac nuclear medicine studies in the 12 months prior to the current study. COMPARISON: CT angio chest PE prot [id number] 12/31/2022 11:40 AM RADIATION DOSE METRICS: Total DLP (mGy-cm): 256.63 FINDINGS: Pulmonary arteries: No pulmonary embolus. Aorta: Unremarkable. No aortic aneurysm. No aortic dissection. Lungs: Patchy consolidations along the periphery of the left lower lobe, right middle lobe and lingula. Pleural spaces: Unremarkable. No pneumothorax. No pleural effusion. Heart: Unremarkable. No cardiomegaly. No pericardial effusion. Lymph nodes: Unremarkable. No enlarged lymph nodes. Bones/joints: Unremarkable. No acute fracture. Soft tissues: Unremarkable. CT/CT angio chest PE protcl [id number] IMPRESSION: 1. Patchy consolidations along the periphery of the left lower lobe, right middle lobe and lingula. While nonspecific findings can be seen the setting community-acquired pneumonia. 2. No pulmonary embolus.
[2023-03-09] VITALS (7 sets, daily range): BP systolic 109–169; BP diastolic 62–76; PULSE 71–89; RESP 16–20; TEMP 36.2–37.2; O2SAT 95–99
[2023-03-09 00:32] LABS: Lactic Acid level (Lactate) 1.1 mmol/L (0.5-2.2)
[2023-03-09] MEDS: iohexol 350 mg/mL 500 mL Btl (per mL) IV (00:36)
[2023-03-09 06:34] LABS: Adenovirus Not Detected (NOT DETECT); Chlamydia Pneumoniae Not Detected (NOT DETECT); Coronavirus 229E,HKU1,NL63,OC4 Not Detected (NOT DETECT); Human Metapneumovirus Not Detected (NOT DETECT); Human Rhinovirus/Enterovirus Detected (NOT DETECT); Influenza A Not Detected (NOT DETECT); Influenza A H1 Not Detected (NOT DETECT); Influenza A H1-2009 Not Detected (NOT DETECT); Influenza A H3 Not Detected (NOT DETECT); Influenza B Not Detected (NOT DETECT); Mycoplasma Pneumoniae Not Detected (NOT DETECT); Parainfluenza Virus Type 1 Not Detected (NOT DETECT); Parainfluenza Virus Type 2 Not Detected (NOT DETECT); Parainfluenza Virus Type 3 Not Detected (NOT DETECT); Parainfluenza Virus Type 4 Not Detected (NOT DETECT); Respiratory Syncytial Virus B Not Detected (NOT DETECT); SARS-COV-2 Not Detected (NOT DETECT)
[2023-03-09 06:46] LABS: Respiratory Syncytial Virus A Detected (NOT DETECT)
[2023-03-09 06:55] LABS: Basophils % 0.1 %; Hematocrit 36.2 % (36-47); Lymphocytes # 0.8 10^3/uL (0.8-4.8); Lymphocytes % 11.3 %; Mean Corpuscular HGB Conc 31.5 g/dL (30-55); Mean Corpuscular Hemoglobin 27.9 pg (27-33); Mean Corpuscular Volume 88.7 fl (85-98); Mean Platelet Volume 10.4 fL (7.4-10.4); Monocytes # 0.1 10^3/uL (0.2-0.9); Monocytes % 1.3 %; Neutrophils # 6.46 10^3/uL (1.8-7.7); Nucleated Red Blood Cells % 0 %; Platelet Count 364 10^3/cmm (157-399); Red Blood Count 4.08 10^6/uL (3.85-5.65); Red Cell Distribution Width 14.8 % (12.1-15.1); White Blood Count 7.43 10^3/uL (3.29-11.43)
[2023-03-09 07:24] LABS: Blood Urea Nitrogen 14 mg/dL (8-23); C Reactive Protein 131.3 mg/L (0.0-4.9); Calcium 8.9 mg/dL (8.5-10.5); Carbon Dioxide 29 mmol/L (22-29); Chloride 100 mmol/L (98-107); Glucose 179 mg/dL (65-115); Magnesium 2.1 mg/dL (1.7-2.3); Osmolality Calculated 289 mOsm/kg (285-295); Phosphorus 3.1 mg/dL (2.5-4.5); Sodium 137 mmol/L (136-145)
[2023-03-09] MEDS: methylPREDNISolone sod succ 40 mg/mL INJ 30 MG IVP ×2 (09:10→21:23)
[2023-03-09] MEDS: potassium chloride ER 20 mEq Tablet PO (10:15)
[2023-03-09] MEDS: azithromycin 250 mg Tablet 500 MG PO (10:17)
[2023-03-09] MEDS: cefTRIAXone 1,000 MG in sodium chloride 0.9% (plus) 50 ML 100 MG IV (10:17)
[2023-03-09] MEDS: FUROsemide 40 mg Tablet PO (10:17)
[2023-03-09] MEDS: lisinopril 5 mg Tablet PO (10:17)
--- NOTE | 2023-03-09 16:29 | P.PN_ITS ---
Subjective 2 Subjective: Admitted overnight. H&P and labs appreciated. On examination patient laying comfortably in bed on 3 L of oxygen supplementation. Patient is on 3 L at baseline as well. Denies any nausea vomiting, headache. Complaining of feeling extremely weak. Denies any chest pain. Vitals/I&O/Wt Last Vital Signs Temp 98 F 03/09/23 11:05 Pulse 76 03/09/23 11:05 Resp 17 03/09/23 11:05 BP 147/74 03/09/23 11:05 Pulse Ox 96 03/09/23 11:05 O2 Del Method Nasal Cannula 03/09/23 11:05 O2 Flow Rate 3 03/09/23 08:00 03/09/23 03/09/23 03/09/23 06:59 14:59 22:59 Intake Total 0 / 1010 1010 / 1010 Balance 0 / 935 1010 / 1010 Weight last 48 hrs Weight 72.376 kg Weight 71.781 kg Weight 68.039 kg Physical Exam 2 Narrative: General: No acute distress, AO x3, NC oxygen supplementation HEENT: PERRLA, pupils bilaterally equal and reactive Chest: Bilateral bronchial breath sounds with occasional rhonchi and crackles over lower lung blake more so in right lower zone CVS: S1-S2 regular, no murmurs, no tachycardia, no gallops, no rubs Abdomen: Soft, nontender, no organomegaly, bowel sounds present, morbidly obese Neuro: No focal deficits, no facial deformity, AO x3, power 5/5 in all limbs Data 03/09/23 06:45 03/09/23 06:45 Micro: Microbiology 03/08/23 22:00 Bacterial Antigens - Final Urine,Voided 03/08/23 22:00 Gram Stain - Final Sputum - Expectorated Sputum 03/08/23 19:46 Blood Culture - Preliminary Blood SPECIMEN COLLECTED 03/08/23 19:40 Blood Culture - Preliminary Blood SPECIMEN COLLECTED A&P Assessment and plan (1) COPD (chronic obstructive pulmonary disease): Budesonide twice daily, Xopenex and ipratropium every 6 hours. Continue with Solu-Medrol 40 mg every 12 hourly. Exacerbation most likely in setting of RSV and rhinovirus infection. (2) Pneumonia: Community-acquired pneumonia. Seen on CT. Continue with IV ceftriaxone and azithromycin. Sputum culture awaited. Check urine Legionella and bacterial antigen. Qualifiers: Laterality: left Lung location: lower lobe of lung Pneumonia type: due to unspecified organism Qualified Code(s): J18.9 - Pneumonia, unspecified organism (3) RSV (acute bronchiolitis due to respiratory syncytial virus): (4) Rhinovirus infection: (5) Hypertension: Goal blood pressure less than 140/90 mmHg. Takes lisinopril and Lasix at home. Last echocardiogram from earlier this year showed diastolic dysfunction with a normal EF. Hold off on lisinopril and Lasix for now. Qualifiers: Hypertension type: primary hypertension Qualified Code(s): I10 - Essential (primary) hypertension Plan Full code Cardiac diet Famotidine for PUD prophylaxis Heparin 5000 every 12 for DVT prophylaxis. Attestations 2 Medical Necessity Statement*: Requires further hospitalization for management of community-acquired pneumonia, hypoxia in setting of COPD exacerbation from RSV and rhinovirus infection Diagnoses COPD (chronic obstructive pulmonary disease) J44.9 Pneumonia J18.9 Laterality: left Lung location: lower lobe of lung Pneumonia type: due to unspecified organism RSV (acute bronchiolitis due to respiratory syncytial virus) J21.0 Rhinovirus infection B34.8 Primary hypertension I10 Hypertension type: primary hypertension
[2023-03-09] MEDS: heparin 5,000 unit/mL INJ 1 mL 5000 UNIT SUBCUT (17:00)
[2023-03-09] MEDS: levalbuterol 1.25 mg/3 mL Neb INHALATION (19:46)
[2023-03-09] MEDS: ipratropium 0.5 mg/2.5 mL Neb INHALATION (19:46)
[2023-03-09] MEDS: famotidine 20 mg Tablet PO (21:18)
[2023-03-09 22:08] LABS: Add Urine Microscopic? YES; Bilirubin Urine Neg (Negative); Blood Urine 2+ (Negative); Glucose Urine UA Trace (Normal); Ketones Urine Negative (Negative); Leukocyte Esterase Urine Negative (Negative); Nitrate Urine Negative (Negative); Protein Urine Neg (Negative); Urine Appearance Hazy (CLEAR); Urine Color Yellow (Yellow); Urobilinogen Urine Norm (Negative); pH Urine 5 (5-7)
[2023-03-09 22:09] LABS: Add Urine Culture? No; Bacteria Urine 2+ /hpf; Hyaline Casts Urine 0-4 /lpf; Mucus Urine 2+ /hpf; RBC Urine 0-4 /hpf (0-2)
[2023-03-09 23:55] LABS: Vitamin B12 260 pg/mL (232-1245)
[2023-03-10] VITALS (7 sets, daily range): BP systolic 118–148; BP diastolic 69–88; PULSE 67–85; RESP 15–18; TEMP 36.4–36.8; O2SAT 96–99
[2023-03-10] MEDS: benzonatate 100 mg Capsule 200 MG PO (00:40)
[2023-03-10] MEDS: ipratropium 0.5 mg/2.5 mL Neb INHALATION ×2 (03:46→08:29)
[2023-03-10] MEDS: levalbuterol 1.25 mg/3 mL Neb INHALATION ×2 (03:46→08:29)
[2023-03-10] MEDS: heparin 5,000 unit/mL INJ 1 mL 5000 UNIT SUBCUT (05:07)
[2023-03-10 07:01] LABS: Chol HDL Ratio 3.85 mg/dL (0.0-4.40); Cholesterol 204 mg/dL (0-200); HDL Cholesterol 53 mg/dL (60-100); LDL Cholesterol Calculated 128 mg/dL (50-129); Magnesium 2.1 mg/dL (1.7-2.3); Phosphorus 3.8 mg/dL (2.5-4.5); Triglycerides 113 mg/dL (0-150); VLDL Cholestrol Calculation 23 mg/dL (0-30)
[2023-03-10 07:18] LABS: Folate Level 5.8 ng/mL (4.8-37.3)
[2023-03-10] MEDS: azithromycin 250 mg Tablet 500 MG PO (08:24)
[2023-03-10] MEDS: cefTRIAXone 1,000 MG in sodium chloride 0.9% (plus) 50 ML 100 MG IV (08:25)
[2023-03-10] MEDS: methylPREDNISolone sod succ 40 mg/mL INJ 30 MG IVP (10:32)
--- NOTE | 2023-03-10 13:22 | P.DS_ITS ---
Discharge Providers Date of Admission: 03/09/23 16:24 Date of Discharge: March 10, 2023 Attending Provider at Admission: Ofe Grey MD Attending Provider at Discharge: Pino Corrales MD Primary Care Provider: Chioma Forbes MD Diagnoses at Discharge Discharge Diagnosis (1) COPD (chronic obstructive pulmonary disease): Status: Acute (2) Pneumonia: Status: Acute Qualifiers: Laterality: left Lung location: lower lobe of lung Pneumonia type: due to unspecified organism Qualified Code(s): J18.9 - Pneumonia, unspecified organism (3) RSV (acute bronchiolitis due to respiratory syncytial virus): Status: Acute (4) Rhinovirus infection: Status: Acute (5) Hypertension: Status: Acute Qualifiers: Hypertension type: primary hypertension Qualified Code(s): I10 - Essential (primary) hypertension Permanent problem details: not chronically on treatment 12/31/22 Reason for Visit Reason for Visit: Sent By Clinic Possible Phen Brief History: History as per HPI: Holly Tapia is a 77 year old female with 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 Patient is stating that her grandson has RSV who is 7 months old will start learning tree daycare, Holly is stating that her symptoms started roughly 3 days ago with nasal congestion and then it converted to cough, she is endorsing subjective fever, her cough is productive she is being applied sputum, she noticed a couple episode of diarrhea today as well because of worsening of weakness lethargy fatigue and shortness of breath she was evaluated the urgent care, she was asked to come to the ER for further evaluation. In the ER she has been diagnosed with sinus tachycardia, community-acquired pneumonia, she has received antibiotics, patient is stating that in case something happens to her, her granddaughter should be notified, she also has a son, she is full code, initially he was stating that she does not want anything done her tube but when I explained her that without chest compressions resuscitation might not be very fruitful then she agreed for full CODE STATUS Hospital Course Hospital Course Patient was admitted to the hospital further evaluation and management of hypoxia in setting of COPD exacerbation. CT on admission was consistent with community-acquired pneumonia. Respiratory viral panel came back positive for RSV and enterovirus. Patient continued doing well during hospitalization with her oxygen supplementation remaining stable at baseline 3 L. She was discharged on steroid taper, oral Augmentin and Levaquin for next 7 days. She is also being discharged on nebulization treatment. Physical Exam Narrative: General: No acute distress, AO x3, NC oxygen supplementation HEENT: PERRLA, pupils bilaterally equal and reactive Chest: Bilateral bronchial breath sounds with occasional rhonchi and crackles over lower lung blake more so in right lower zone CVS: S1-S2 regular, no murmurs, no tachycardia, no gallops, no rubs Abdomen: Soft, nontender, no organomegaly, bowel sounds present, morbidly obese Neuro: No focal deficits, no facial deformity, AO x3, power 5/5 in all limbs Discharge Data Studies Completed and Pending Completed Studies During Hospitalization Category Date Time Status CTA PE [CT angio chest PE protcl [id number]] Stat Cat Scan 03/08/23 23:55 Completed Pending at discharge Category Date Time Status Blood Culture Stat Lab 03/08/23 19:46 Results MAG [Magnesium] AM LABS Lab 03/11/23 04:00 Ordered MAG [Magnesium] AM LABS Lab 03/12/23 04:00 Ordered MRSA [Methicillin Resistant S.aureu] Routine Lab 03/09/23 16:29 Received PHOS [Phosphorus] AM LABS Lab 03/11/23 04:00 Ordered PHOS [Phosphorus] AM LABS Lab 03/12/23 04:00 Ordered Sputum Culture and Gram Stain Routine Lab 03/08/23 22:00 Results Radiology Impressions Chest CTA 03/08/23 23:55 IMPRESSION: 1. Patchy consolidations along the periphery of the left lower lobe, right middle lobe and lingula. While nonspecific findings can be seen the setting community-acquired pneumonia. 2. No pulmonary embolus. Laboratory Results WBC 7.43 10^3/uL (3.29-11.43) 03/09/23 06:45 RBC 4.08 10^6/uL (3.85-5.65) 03/09/23 06:45 Hgb 11.40 g/dL (11.27-16.99) 03/09/23 06:45 Hct 36.2 % (36-47) 03/09/23 06:45 MCV 88.7 fl (85-98) 03/09/23 06:45 MCH 27.9 pg (27-33) 03/09/23 06:45 MCHC 31.5 g/dL (30-55) 03/09/23 06:45 RDW 14.8 % (12.1-15.1) 03/09/23 06:45 Plt Count 364 10^3/cmm (157-399) 03/09/23 06:45 MPV 10.4 fL (7.4-10.4) 03/09/23 06:45 Neut % (Auto) 87.0 % 03/09/23 06:45 Lymph % (Auto) 11.3 % 03/09/23 06:45 [place] % (Auto) 1.3 % 03/09/23 06:45 Eos % (Auto) 0.0 % 03/09/23 06:45 Baso % (Auto) 0.1 % 03/09/23 06:45 Neut # (Auto) 6.46 10^3/uL (1.8-7.7) 03/09/23 06:45 Lymph # (Auto) 0.8 10^3/uL (0.8-4.8) 03/09/23 06:45 [place] # (Auto) 0.1 10^3/uL (0.2-0.9) L 03/09/23 06:45 Eos # (Auto) 0.0 10^3/uL (0.0-0.8) 03/09/23 06:45 Baso # (Auto) 0.0 10^3/uL (0.0-0.1) 03/09/23 06:45 Nucleated RBC % (auto) 0 % 03/09/23 06:45 Nucleated RBCs # 0.0 /100WBC 03/09/23 06:45 D-Dimer 2.77 ug/mLFEU (0-0.59) H 03/08/23 19:40 Specimen Type Arterial 03/08/23 19:26 Sample Site Radial, right 03/08/23 19:26 ABG pH 7.42 (7.35-7.45) 03/08/23 19:26 ABG pCO2 43.8 mmHg (35-45) 03/08/23 19:26 ABG pO2 73.1 mmHg (80.0-100.0) L 03/08/23 19:26 ABG HCO3 28.4 mmol/L (22-26) H 03/08/23 19:26 ABG O2 Saturation 96.5 03/08/23 19:26 ABG Base Excess 3.4 mmol/L (-2.0-2.0) H 03/08/23 19:26 Boby Test Pos 03/08/23 19:26 A-a O2 Gradient 3.0 mmHg (5-10) L 03/08/23 19:26 Hematocrit 37.2 % (37-47) 03/08/23 19:26 Hgb O2 Saturation 94.8 % (95-100) L 03/08/23 19:26 Carboxyhemoglobin 1.5 %THgb (0.4-20.1) 03/08/23 19:26 Methemoglobin 0.4 % (0.4-1.5) 03/08/23 19:26 Total Hemoglobin 12.1 g/dL (-16) 03/08/23 19:26 Sodium 140.0 mmol/L (131-143) 03/08/23 19:26 Potassium 4.0 mmol/L (3.5-5.0) 03/08/23 19:26 Glucose 130.0 mg/dL (70-115) H 03/08/23 19:26 Ionized Calcium 1.2 mmol/L (1.1-1.4) 03/08/23 19:26 O2 Delivery Device Nc 03/08/23 19:26 O2 Liters/Min 3.0 % 03/08/23 19:26 A P Mechanic ID [place] 03/08/23 19:26 Sodium 137 mmol/L (136-145) 03/09/23 06:45 Potassium 5.0 mmol/L (3.5-5.1) 03/09/23 06:45 Chloride 100 mmol/L (98-107) 03/09/23 06:45 Carbon Dioxide 29 mmol/L (22-29) 03/09/23 06:45 Anion Gap 13.0 (5-19) 03/09/23 06:45 BUN 14 mg/dL (8-23) 03/09/23 06:45 Creatinine 1.0 mg/dL (0.5-0.9) H 03/09/23 06:45 GFR Calculation Not Reportable 03/09/23 06:45 Glucose 179 mg/dL (65-115) H 03/09/23 06:45 Estimat Average Glucose 114 03/08/23 19:40 Hemoglobin A1c 5.6 % (4.0-6.0) 03/08/23 19:40 Calculated Osmolality 289 mOsm/kg (285-295) 03/09/23 06:45 Lactic Acid 2.2 mmol/L (0.5-2.2) 03/08/23 19:40 Lactic Acid (Sepsis) 1.1 mmol/L (0.5-2.2) 03/08/23 23:12 Calcium 8.9 mg/dL (8.5-10.5) 03/09/23 06:45 Phosphorus 3.8 mg/dL (2.5-4.5) 03/10/23 06:09 Magnesium 2.1 mg/dL (1.7-2.3) 03/10/23 06:09 Total Bilirubin 0.4 mg/dL (0.15-1.2) 03/08/23 19:40 AST 11 U/L (0-32) 03/08/23 19:40 ALT 7 U/L (0-33) 03/08/23 19:40 Alkaline Phosphatase 92 U/L (35-105) 03/08/23 19:40 C-Reactive Protein 131.3 mg/L (0.0-4.9) H 03/09/23 06:45 NT-Pro-B Natriuret Pep 194 pg/mL (0-450) 03/08/23 19:40 Total Protein 7.7 g/dL (6.6-8.7) 03/08/23 19:40 Albumin 3.8 g/dL (3.5-5.2) 03/08/23 19:40 Globulin 3.9 g/dL (1.3-4.6) 03/08/23 19:40 Triglycerides 113 mg/dL (0-150) 03/10/23 06:09 Cholesterol 204 mg/dL (0-200) H 03/10/23 06:09 LDL Cholesterol, Calc 128 mg/dL (50-129) 03/10/23 06:09 Total VLDL Cholesterol 23 mg/dL (0-30) 03/10/23 06:09 HDL Cholesterol 53 mg/dL (60-100) L 03/10/23 06:09 Cholesterol/HDL Ratio 3.85 mg/dL (0.0-4.40) 03/10/23 06:09 Vitamin B12 260 pg/mL (232-1245) 03/09/23 16:45 Folate 5.8 ng/mL (4.8-37.3) 03/10/23 06:09 Procalcitonin 0.10 ng/mL (0-0.5) 03/09/23 16:45 TSH 0.78 uIU/mL (0.27-4.20) 03/08/23 19:40 Urine Color Yellow (Yellow) 03/09/23 21:20 Urine Appearance Hazy (CLEAR) A 03/09/23 21:20 Urine pH 5 (5-7) 03/09/23 21:20 Ur Specific [place] 1.010 (1.005-1.030) 03/09/23 21:20 Urine Protein Neg (Negative) 03/09/23 21:20 Urine Glucose (UA) Trace (Normal) H 03/09/23 21:20 Urine Ketones Negative (Negative) 03/09/23 21:20 Urine Blood 2+ (Negative) H 03/09/23 21:20 Urine Nitrate Negative (Negative) 03/09/23 21:20 Urine Bilirubin Neg (Negative) 03/09/23 21:20 Urine Urobilinogen Norm mg/dL (Negative) 03/09/23 21:20 Ur Leukocyte Esterase Negative (Negative) 03/09/23 21:20 Urine RBC 0-4 /hpf (0-2) H 03/09/23 21:20 Urine WBC 5-10 /hpf (0-5) H 03/09/23 21:20 Ur Squamous Epith Cells 10-15 /hpf (0-5) H 03/09/23 21:20 Amorphous Sediment Not Reportable 03/09/23 21:20 Urine Bacteria 2+ /hpf (NONE) H 03/09/23 21:20 Hyaline Casts 0-4 /lpf H 03/09/23 21:20 Coarse Granular Casts 5-10 /lpf H 03/09/23 21:20 Urine Mucus 2+ /hpf 03/09/23 21:20 Nasal Influ A H1 2008 PCR Not detected (NOT DETECT) 03/08/23 22:00 Adenovirus (PCR) Not detected (NOT DETECT) 03/08/23 22:00 C. pneumoniae DNA (PCR) Not detected (NOT DETECT) 03/08/23 22:00 Coronavirus 229E (PCR) Not detected (NOT DETECT) 03/08/23 22:00 Human Metapneumovir PCR Not detected (NOT DETECT) 03/08/23 22:00 Influenza A (H1) PCR Not detected (NOT DETECT) 03/08/23 22:00 Influenza A (H3) PCR Not detected (NOT DETECT) 03/08/23 22:00 Influenza Type A (PCR) Not detected (NOT DETECT) 03/08/23 22:00 Influenza Type B (PCR) Not detected (NOT DETECT) 03/08/23 22:00 M. pneumoniae (PCR) Not detected (NOT DETECT) 03/08/23 22:00 Parainfluenza 1 (PCR) Not detected (NOT DETECT) 03/08/23 22:00 Parainfluenza 2 (PCR) Not detected (NOT DETECT) 03/08/23 22:00 Parainfluenza 3 (PCR) Not detected (NOT DETECT) 03/08/23 22:00 Parainfluenza 4 (PCR) Not detected (NOT DETECT) 03/08/23 22:00 RSV Type A (PCR) Detected (NOT DETECT) A 03/08/23 22:00 RSV Type B (PCR) Not detected (NOT DETECT) 03/08/23 22:00 Entero/Rhino (PCR) Detected (NOT DETECT) A 03/08/23 22:00 SARS-CoV-2 (PCR) Not detected (NOT DETECT) 03/08/23 22:00 Vitals Last Vital Signs Temp 98.2 F 03/10/23 11:29 Pulse 83 03/10/23 11:29 Resp 18 03/10/23 11:29 BP 148/75 03/10/23 11:29 Pulse Ox 96 03/10/23 11:29 O2 Del Method Nasal Cannula 03/10/23 11:29 O2 Flow Rate 3 03/10/23 08:39 Discharge Plan Discharge Patient Disposition: Home Condition: Stable Prescriptions: New budesonide [Pulmicort] 0.5 mg/2 mL suspension for nebulization 0.5 mg inhalation Q12H Qty: 60 0RF ipratropium-albuterol 0.5 mg-3 mg(2.5 mg base)/3 mL solution for nebulization 3 ml inhalation Q8H Qty: 90 0RF amoxicillin-pot clavulanate 875-125 mg tablet 1 tab PO Q12H Qty: 14 0RF levofloxacin 750 mg tablet 750 mg PO Q24H 7 Days Qty: 7 0RF prednisone 10 mg tablet See Taper PO DIRECTED Qty: 42 0RF Taper: predniSONE 60-10 60 mg Daily for 2 Days and 0 Hour 50 mg Daily for 2 Days and 0 Hour 40 mg Daily for 2 Days and 0 Hour 30 mg Daily for 2 Days and 0 Hour 20 mg Daily for 2 Days and 0 Hour 10 mg Daily for 2 Days and 0 Hour Rx Instructions: see taper instructions Continued lisinopril 5 mg tablet 5 mg PO DAILY Qty: 90 0RF acetaminophen 500 mg Tablet 500 - 1,000 mg PO Q6H PRN (Reason: Pain) dextromethorphan-guaifenesin 10-100 mg/5 mL Syrup 10 ml PO Q4H PRN (Reason: Cough) Qty: 237 0RF albuterol sulfate 90 mcg/actuation aerosol powdr breath activated 2 inh inhalation Q6H PRN (Reason: shortness of breath or wheezing) Qty: 1 1RF Held Lasix 20 mg Tablet 20 mg PO DAILY Hold Instructions: Resume on 03/24/23. Discharge Orders: Discharge Order (Routine); Ordered 03/10/23 Ordered By: Pino Corrales Referrals: Chioma Forbes MD [Primary Care Provider] - 4-7 days Discharge Diet: Cardiac Discharge Activity: Resume usual activity and Increase activity as tolerated Patient Instructions: Opioid Safety Activity Restrictions/Additional Instructions: Please take steroid taper as described. Augmentin and Levaquin is the antibiotic which you should take for next 7 days. Please continue nebulization treatment as described. You should use DuoNeb 4 times a day and Pulmicort twice daily. Discharge Attestations 2 Time Spent in Discharge Care*: greater than 30 min Specific Discharge Activities: educating patient, discussing with pcp/other providers, discussing with welfare case worker/social workers/dc planners, documenting/other paperwork and evaluating patient/reviewing data Status at Discharge: Cognitive status at discharge: cognitively intact , Behavioral status at discharge: cooperative , Functional status at discharge: uses cane/walker , Overall status at discharge: patient is back to baseline Quality Metrics Clinical Quality Measures [ No reported AMI, CVA or VTE this stay] Coding Level of Care Code 12307 Total time (in minutes) for Discharge: 60 Diagnoses COPD (chronic obstructive pulmonary disease) J44.9 Pneumonia J18.9 Laterality: left Lung location: lower lobe of lung Pneumonia type: due to unspecified organism RSV (acute bronchiolitis due to respiratory syncytial virus) J21.0 Rhinovirus infection B34.8 Primary hypertension I10 Hypertension type: primary hypertension
[2023-03-11 14:39] LABS: Methicillin-Resist S.aureu PCR NOT DETECTED (NOT DETECTED)
== END 2023-03-10 14:26 | disposition home or self-care (01) | DRG 190 ==
LOC: ER 21:05 → MEDSURG 21:12
PROVIDERS: Admitting Provider Internal Medicine; Emergency Provider Emergency Medicine; PCP Family Medicine; Visit Provider Student in an Organized Health Care Education/Training Program
DX: J44.0 Chronic obstructive pulmonary disease with (acute) lower respiratory infection (principal); J18.9 Pneumonia, unspecified organism; J21.0 Acute bronchiolitis due to respiratory syncytial virus; I50.32 Chronic diastolic (congestive) heart failure; J44.1 Chronic obstructive pulmonary disease with (acute) exacerbation; Z87.01 Personal history of pneumonia (recurrent); Z99.81 Dependence on supplemental oxygen; Z87.891 Personal history of nicotine dependence; R00.0 Tachycardia, unspecified; I11.0 Hypertensive heart disease with heart failure; R09.02 Hypoxemia; B97.89 Other viral agents as the cause of diseases classified elsewhere; B97.10 Unspecified enterovirus as the cause of diseases classified elsewhere
CPT/HCPCS: 36415; 36600; 71046; 71275; 80048; 80051; 80053; 80061; 81001; 82330; 82607; 82746; 82805; 83036; 83605; 83735; 83880; 84100; 84145; 84443; 85025; 85378; 86140; 86403; 87040; 87070; 87205; 87486; 87581; 87633; 87641; 93005; 94640; 94664; 96365; 96372; 97110; 99285; G0378; J0696; J1644; J2543; J2920; J7614; J7644; Q0144; Q9967

== ENCOUNTER 2023-06-25 19:53 | Emergency (ER) | payer MEDICARE, SELFPAY ==
[2023-06-25 19:55] VITALS: BMI 26.6
[2023-06-25 19:58] VITALS: BP 198/102; PULSE 101; RESP 16; TEMP 36.7; O2SAT 97
--- NOTE | 2023-06-25 20:00 | XRR_ITS ---
PROCEDURE INFORMATION: Exam: XR Chest Exam date and time: 06/25/2023 8:02 PM Age: 77 years old Clinical indication: Shortness of breath; Additional info: SOB TECHNIQUE: Imaging protocol: Radiologic exam of the chest. Views: 1 view. COMPARISON: CT angio chest PE protcl [id number] 03/09/2023 12:31 AM FINDINGS: Lungs: There is a small area of infiltrate involving the left lung base. The right lung is clear. I see no dense consolidation or mass. Pleural spaces: Unremarkable. No pleural effusion. No pneumothorax. Heart/Mediastinum: Unremarkable. No cardiomegaly. Bones/joints: Unremarkable. XR/XR chest 1V portable [id number] IMPRESSION: Left basilar pneumonia. This infiltrate has improved over the past 4 months.
--- NOTE | 2023-06-25 20:03 | W.ED.SOB ---
HPI - SOB/Dyspnea General: Chief Complaint: Shortness of Breath/Dyspnea Stated Complaint: sob Time Seen by Provider: 06/25/23 20:00 Source: patient Mode of arrival: ambulatory Limitations: no limitations History of Present Illness: HPI Narrative: 77-year-old female has a history of COPD she states over the last 3 to 4 days she has been having increasing cough she had some nasal congestion as well she is felt short of breath. She is on 3 L oxygen at home at baseline she is 98% here on her 3 L. She is in no distress here able speak in full sentences denies any chest pain. Associated symptoms: Deny abdominal pain, chest pain, fever(s), nausea or vomiting Review of Systems Const: Denies: fever(s), chills, body aches or change in appetite ENMT: Reports: nasal congestion; Denies: throat pain or dental pain Card: Denies: chest pain Resp: Reports: dyspnea and non-productive cough GI: Denies: abdominal pain, nausea, vomiting or diarrhea Musc: Denies: neck pain or back pain Skin/Breast: Denies: rash Neuro: Denies: headache(s) PFSH ED PFSH: Medical History Hypertension not chronically on treatment 12/31/22 4 Para 2 History of diverticulitis 2015 with microperforation Surgical History History of colonoscopy 11/2015 Family History Father Lung cancer Mother Old age Mother in 2022 at age 95, rarely sought medical care Social History Smoking and tobacco/nicotine status: former use of tobacco/nicotine Alcohol intake: never Substance/Drug Use: never Additional social history: Does not seek medical care regularly. Does not want to be in hospital, take pills, or see a doctor unless she has to. Lives in [place]. Household members: other Details: son lives with patient; grand daughter also involved in care Physical Exam Const: COMMON NORMALS: no acute distress, patient oriented x3 and healthy appearing HENMT: COMMON NORMALS: normocephalic and atraumatic HEAD & SCALP: normocephalic and atraumatic Neck/C-Spine: COMMON NORMALS: full ROM and supple Chest: COMMONS NORMALS: normal inspection of the chest and normal palpation of entire chest wall Resp: COMMON NORMALS: normal respiratory effort, No retractions, No use of accessory muscles and clear to auscultation bilaterally AUSCULTATION: clear to auscultation bilaterally Cardio: COMMON NORMALS: regular rate, regular rhythm and No murmurs present (Cardio) RATE: regular rate RHYTHM: regular rhythm Extremity: COMMON NORMALS: normal to inspection and full ROM Neuro: COMMON NORMALS: patient oriented x3, moves all extremities and no focal motor deficits Psych: COMMON NORMALS: mental status grossly normal, Normal thought process present and cooperative THOUGHT PROCESS: Normal thought process present Skin: COMMON NORMALS: no rashes or lesions noted and no wounds GENERAL SKIN EXAM: no rashes or lesions noted Course Vital Signs: Vital signs: Vital Signs Temperature 98.0 F 06/25/23 19:58 Pulse Rate 96 06/25/23 20:57 Respiratory Rate 16 06/25/23 20:57 Blood Pressure 172/81 06/25/23 20:57 Pulse Oximetry 97 06/25/23 20:57 Oxygen Delivery Me thod Nasal Cannula 06/25/23 20:57 Oxygen Flow Rate 3 06/25/23 20:57 MDM - SOB/Dyspnea Medical Decision Making Patient presents here with shortness of breath she does have COPD x-ray shows a slight lower lobe pneumonia is likely chronic from her previous pneumonia versus bronchitis we will start her on steroids we will start her doxycycline as well her oxygen here is at her baseline she is in no distress she is return if worsening. Medical Records I reviewed the patient's medical records. Lab Data I reviewed the patient's lab results. 06/25/23 20:18 06/25/23 20:18 Labs/Radiology: Radiology Impressions Chest X-Ray 06/25/23 20:00 IMPRESSION: Left basilar pneumonia. This infiltrate has improved over the past 4 months. Laboratory Results WBC 7.72 10^3/uL (3.29-11.43) 06/25/23 20:18 RBC 3.78 10^6/uL (3.85-5.65) L 06/25/23 20:18 Hgb 11.20 g/dL (11.27-16.99) L 06/25/23 20:18 Hct 35.5 % (36-47) L 06/25/23 20:18 MCV 93.9 fl (85-98) 06/25/23 20:18 MCH 29.6 pg (27-33) 06/25/23 20:18 MCHC 31.5 g/dL (30-55) 06/25/23 20:18 RDW 12.7 % (12.1-15.1) 06/25/23 20:18 Plt Count 309 10^3/cmm (157-399) 06/25/23 20:18 MPV 9.9 fL (7.4-10.4) 06/25/23 20:18 Neut % (Auto) 71.7 % 06/25/23 20:18 Lymph % (Auto) 19.2 % 06/25/23 20:18 [place] % (Auto) 6.0 % 06/25/23 20:18 Eos % (Auto) 2.2 % 06/25/23 20:18 Baso % (Auto) 0.5 % 06/25/23 20:18 Neut # (Auto) 5.54 10^3/uL (1.8-7.7) 06/25/23 20:18 Lymph # (Auto) 1.5 10^3/uL (0.8-4.8) 06/25/23 20:18 [place] # (Auto) 0.5 10^3/uL (0.2-0.9) 06/25/23 20:18 Eos # (Auto) 0.2 10^3/uL (0.0-0.8) 06/25/23 20:18 Baso # (Auto) 0.0 10^3/uL (0.0-0.1) 06/25/23 20:18 Nucleated RBC % (auto) 0 % 06/25/23 20:18 Nucleated RBCs # 0.0 /100WBC 06/25/23 20:18 Sodium 134 mmol/L (136-145) L 06/25/23 20:18 Potassium 4.8 mmol/L (3.5-5.1) 06/25/23 20:18 Chloride 97 mmol/L (98-107) L 06/25/23 20:18 Carbon Dioxide 28 mmol/L (22-29) 06/25/23 20:18 Anion Gap 13.8 (5-19) 06/25/23 20:18 BUN 18 mg/dL (8-23) 06/25/23 20:18 Creatinine 1.0 mg/dL (0.5-0.9) H 06/25/23 20:18 GFR Calculation Not Reportable 06/25/23 20:18 Calcium 9.0 mg/dL (8.5-10.5) 06/25/23 20:18 Total Bilirubin 0.3 mg/dL (0.15-1.2) 06/25/23 20:18 AST 14 U/L (0-32) 06/25/23 20:18 ALT 9 U/L (0-33) 06/25/23 20:18 Alkaline Phosphatase 90 U/L (35-105) 06/25/23 20:18 NT-Pro-B Natriuret Pep 259 pg/mL (0-450) 06/25/23 20:18 Total Protein 8.1 g/dL (6.6-8.7) 06/25/23 20:18 Albumin 3.9 g/dL (3.5-5.2) 06/25/23 20:18 Globulin 4.2 g/dL (1.3-4.6) 06/25/23 20:18 Influenza Type A Ag negative (Negative) 06/25/23 20:30 Influenza Type B Ag negative (Negative) 06/25/23 20:30 SARS-CoV-2 Ag (Rapid) negative (Negative) 06/25/23 20:30 All radiology interpretation(s) finalized by discharge Discharge Plan Discharge Patient Disposition: Home Clinical Impression: Bronchitis COPD (chronic obstructive pulmonary disease) Qualifiers: COPD type: COPD with acute exacerbation Qualified Code(s): J44.1 - Chronic obstructive pulmonary disease with (acute) exacerbation Prescriptions: New prednisone 50 mg tablet 50 mg PO DAILY Qty: 5 0RF doxycycline hyclate 100 mg tablet 100 mg PO BID 7 Days Qty: 14 0RF No Action lisinopril 5 mg tablet 5 mg PO DAILY Qty: 90 3RF amoxicillin-pot clavulanate 875-125 mg tablet 1 tab PO Q12H Qty: 14 0RF Qvar RediHaler 40 mcg/actuation HFA aerosol breath activated 1 inh inhalation BID Qty: 10.6 1RF dextromethorphan-guaifenesin 10-100 mg/5 mL syrup 10 ml PO Q4H PRN (Reason: Cough) Qty: 237 2RF acetaminophen 500 mg Tablet 500 - 1,000 mg PO Q6H PRN (Reason: Pain) albuterol sulfate 90 mcg/actuation aerosol powdr breath activated 2 inh inhalation Q6H PRN (Reason: shortness of breath or wheezing) Qty: 1 1RF Lasix 20 mg Tablet 20 mg PO DAILY Hold Instructions: Resume on 03/24/23. prednisone 10 mg tablet See Taper PO DIRECTED Qty: 42 0RF Taper: predniSONE 60-10 60 mg Daily for 2 Days and 0 Hour 50 mg Daily for 2 Days and 0 Hour 40 mg Daily for 2 Days and 0 Hour 30 mg Daily for 2 Days and 0 Hour 20 mg Daily for 2 Days and 0 Hour 10 mg Daily for 2 Days and 0 Hour Rx Instructions: see taper instructions ipratropium-albuterol 0.5 mg-3 mg(2.5 mg base)/3 mL solution for nebulization 3 ml inhalation Q8H Qty: 90 0RF Discharge Orders: Discharge ED (Routine); Ordered 06/25/23 Ordered By: Valentin Castillo Referrals: Chioma Forbes MD [Primary Care Provider] - 1-3 days Discharge Diet: Advance as tolerated Discharge Activity: Resume usual activity Patient Instructions: Acute Bronchitis (ED), COPD (Chronic Obstructive Pulmonary Disease) (ED) Coding Level of Care Code ED [facility] Recovery Supervisor for Adrian Ang
[2023-06-25] MEDS: methylPREDNISolone sod succ 125 mg/2 mL INJ IVP (20:23)
[2023-06-25 20:24] LABS: Basophils % 0.5 %; Eosinophils # 0.2 10^3/uL (0.0-0.8); Eosinophils % 2.2 %; Hematocrit 35.5 % (36-47); Lymphocytes # 1.5 10^3/uL (0.8-4.8); Lymphocytes % 19.2 %; Mean Corpuscular HGB Conc 31.5 g/dL (30-55); Mean Corpuscular Hemoglobin 29.6 pg (27-33); Mean Corpuscular Volume 93.9 fl (85-98); Mean Platelet Volume 9.9 fL (7.4-10.4); Monocytes # 0.5 10^3/uL (0.2-0.9); Neutrophils # 5.54 10^3/uL (1.8-7.7); Neutrophils % 71.7 %; Nucleated Red Blood Cells % 0 %; Platelet Count 309 10^3/cmm (157-399); Red Blood Count 3.78 10^6/uL (3.85-5.65); Red Cell Distribution Width 12.7 % (12.1-15.1); White Blood Count 7.72 10^3/uL (3.29-11.43)
[2023-06-25] MEDS: ipratropium-albuterol 3 mL Neb INHALATION (20:38)
[2023-06-25 20:39] VITALS: PULSE 94; RESP 18; O2SAT 98
[2023-06-25 20:42] VITALS: PULSE 92; RESP 18; O2SAT 98
[2023-06-25 20:53] LABS: Influenza A by IFA negative (Negative); Influenza B by IFA negative (Negative); SARS Covid-2 Antigen negative (Negative)
[2023-06-25] MEDS: hyDRALAzine 20 mg/mL INJ 1 mL 10 MG IVP (20:55)
[2023-06-25 20:57] VITALS: BP 172/81; PULSE 96; RESP 16; O2SAT 97
[2023-06-25 21:14] LABS: Alanine Aminotransferase 9 U/L (0-33); Albumin Level 3.9 g/dL (3.5-5.2); Alkaline Phosphatase 90 U/L (35-105); Aspartate Amino Transferase 14 U/L (0-32); Blood Urea Nitrogen 18 mg/dL (8-23); Carbon Dioxide 28 mmol/L (22-29); Chloride 97 mmol/L (98-107); Creatinine Clr Calc Pharmacy 48.5202; Globulin 4.2 g/dL (1.3-4.6); NT Pro B Type Natriuretic Pept 259 pg/mL (0-450); Sodium 134 mmol/L (136-145); Total Bilirubin 0.3 mg/dL (0.15-1.2); Total Protein 8.1 g/dL (6.6-8.7)
[2023-06-25 21:19] LABS: Anion Gap 13.8 (5-19); Potassium 4.8 mmol/L (3.5-5.1)
[2023-06-25 21:42] LABS: Glucose 120 mg/dL (65-115); Osmolality Calculated 281 mOsm/kg (285-295)
[2023-06-25 21:43] VITALS: BP 125/64; PULSE 76; RESP 22; O2SAT 95
== END 2023-06-25 21:44 | disposition home or self-care (01) ==
PROVIDERS: Emergency Provider Emergency Medicine; PCP Family Medicine
DX: J44.1 Chronic obstructive pulmonary disease with (acute) exacerbation (principal); Z87.891 Personal history of nicotine dependence; I10 Essential (primary) hypertension
CPT/HCPCS: 71045; 80053; 83880; 85025; 87426; 87804; 94640; 96374; 96375; 99284; J0360; J2919